=== PATIENT | male | born 1940 | race Caucasian/White ===

== ENCOUNTER 2019-04-12 06:20 | Observation (INO) ==
[2019-04-12] MEDS ORDERED: LIDOCAINE HCL 1% 20 ML VIAL ONE (06:47)
[2019-04-12] MEDS ORDERED: BUPIVACAINE 0.25% 30 ML VIAL ONE (06:48)
[2019-04-12] MEDS ORDERED: BACITRACIN INJ 50,000 UNIT VIAL ONE (06:48)
[2019-04-12] MEDS ORDERED: MIDAZOLAM HCL 5 MG/ML 1 ML VIAL ONE (07:57)
--- NOTE | 2019-04-12 07:57 | Pre Anesthesia Assessment ---
Date of Service April 12, 2019 Pre Sedation Assessment Vital Signs Temp Pulse Resp BP Pulse Ox 04/12/19 06:52 36.6 C 38 L 20 165/84 H 95 Cardiovascular + bradycardic Respiratory normal respiratory effort, lungs clear to auscultation Pre-Sedation Airway Assessment Smoking Status: Current every day smoker Hx Sleep Apnea: No Short, Thick Neck: No Thyromental Distance: > or= 3.5 Finger Breadths Oral Cavity: + WNL Mallampati Class: I ASA: ASA3 NPO Status Date of Last Intake of Fluids: 04/11/19 Time of Last Intake of Fluids: 22:00 Date of Last Intake of Solid Food: 04/11/19 Time of Last Intake of Solid Foods: 22:00 Procedure Planning Contraindications for Sedation: none Current Medications Reviewed: Yes Notes The planned sedation has been discussed with the patient. Informed Consent was obtained. I have identified the patient, determined the appropriateness of sedation and have assessed the patient immediately prior to the procedure. All medicine(s) and interventions are by my order.
--- NOTE | 2019-04-12 07:57 | History & Physical Bridge Note ---
Date of Service April 12, 2019 History & Physical Bridge Note I have examined the patient, reviewed the History & Physical and in the interval since the performance of the History & Physical I have noted the following changes of clinical significance: no changes noted
[2019-04-12] MEDS ORDERED: fentaNYL citrate 100 MCG/2 ML VIAL ONE (07:58)
[2019-04-12] MEDS ORDERED: CEFAZOLIN 250 MG/ML 1 GM VIAL ONE ×2 (07:58→08:11)
[2019-04-12] MEDS ORDERED: HydrALAZINE HCL 20 MG/ML VIAL ONE (10:05)
--- NOTE | 2019-04-12 10:21 | Post Anesthesia Assessment ---
Date of Service April 12, 2019 Post Sedation Assessment Vital Signs Temp Pulse Resp BP Pulse Ox 04/12/19 06:52 36.6 C 38 L 20 165/84 H 95 Recovery Score Activity: Moves 4 extremities Respiration: Deep Breath/Cough Circulation: +/-20% PreAnes Value Consciousness: Fully Awake Oxygen Saturation: > 92% On Room Air Discharge Sedation Level of Care: Fast Track Phase II Post Sedation Plan On clinical assessment, the patient appears to have tolerated the sedation without complications. Patient is recovering as anticipated. Patient will continue to be monitored by nursing and may be discharged when sedation discharge criteria are met per below protocol. Upon Completions of procedure up to 15 minutes continue every 5 minute vital signs and the P.A.R. score; then discharge to a Phase I or Fast Track to Phase I I per the following guidelines: * Discharge Patient to appropriate Phase II area if PAR is 8 or greater or return to pre- procedure baseline. The post - procedure orders will be as directed. * If PAR score is less than 8 or not return to pre-procedure baseline then patient will follow Phase I monitoring till PAR is reached for Phase II. The Phase I may be done in procedure room or may call to secure a Phase I area. * If naloxone or flumazenil are used for reversal, hold in Phase I for continued monitoring from when last reversal dose was given for a minimum of 60 minutes or longer pending the nurse and/or physician discretion of patient condition before discharge to Phase II. Please call the Sedation Physician to re-evaluate and complete post-note for discharge to Phase II area. Do NOT discharge from procedure sedation or Phase 1 until post- sedation evaluation note is complete by procedure /sedation MD Sedation Discharge Instructions to be given to the patient at discharge to home.
[2019-04-12] MEDS ORDERED: ACETAMINOPHEN 325 MG TAB PO PRN (10:22)
[2019-04-12] MEDS ORDERED: OXYCODONE/ACETAMINOPHEN 5mg/325mg TAB PO PRN (10:22)
--- NOTE | 2019-04-12 10:22 | Operative Report ---
Post Operative Report Pre & Post Diagnosis intermittent chb Operation Date: 04/12/19 08:00 <No data on this case meets the specified criteria> I identified the patient and participated in the time-out.: Yes Procedure Operation Date: 04/12/19 08:00 Actual Procedures p Pacer with A/V Leads (Dual) - Teri Briones DO Surgeon Teri Briones, DO Basketball Coach none Estimated Blood Loss 25 Findings Consistent with Post-Op Diagnosis Specimens none Description of Procedure see official report I attest to the content of the Intraoperative Record and any orders documented therein. Any exceptions are noted below.
[2019-04-12] MEDS ORDERED: TRIAMCINOLONE ACET 0.1% CR 15 GM TUBE TOP PRN (10:27)
[2019-04-12] MEDS: lisinopriL 5 MG TAB PO SCH (13:16)
--- NOTE | 2019-04-12 13:47 | Operative Report ---
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 PROCEDURE: Biventricular rate responsive permanent pacemaker where the LV lead is actually over the His bundle and the RV lead is a backup along with peripheral venogram, intracardiac electrogram mapping . SURGEON: Teri Briones DO. ASSISTANTS: None. ANESTHESIA: Monitored conscious sedation administered under my supervision by Maddie Will, start time 0812, end time 1011, a total of 4 mg of Versed and 100 mcg of fentanyl. INTRAVENOUS FLUIDS: 60 mL. CONTRAST: 10 mL. ANTIBIOTICS: 2 grams of Ancef. COMPLICATIONS: None. CONDITION: Stable. URINE OUTPUT: Not applicable. SPECIMENS: None. FINDINGS: See below. DRAINS: None. BLOOD LOSS: 25 mL. INDICATIONS: This is a 78-year-old gentleman with past medical history for sinus bradycardia, first-degree AV block, second degree Mobitz I block, junctional escape beats, left anterior fascicular block, incomplete right bundle branch block, hypertension, history of tobacco use, history of colon cancer where he had a chemo port on the left side and most significantly now a lot of intermittent complete heart block. Although he remained asymptomatic, there was so much that I recommended a His bundle pacemaker. CONSENT: Consent was obtained prior to the patient going into electrophysiology lab. The patient was informed of the risks, benefits and alternative procedure. Risks include but not limited to sudden cardiac , cardiac arrhythmias, cerebrovascular accident, myocardial infarction, injury to the blood vessels, chamber of the heart, lung, bleeding, and infection. The patient understood these risks and agreed to the procedure as planned. Informed consent was obtained. DESCRIPTION OF THE PROCEDURE: The patient was brought into the electrophysiology lab in a fasting state. He was connected to continuous cardiac catheterization technologist. A timeout was performed to ensure patient identity and procedure correctly. The patient was prepped and draped over the left infraclavicular space in normal surgical standard fashion. Monitored conscious sedation was given throughout the procedure for patient's comfort level. [place] precautions were maintained throughout the procedure. A 20 mL of 1% lidocaine-bupivacaine mixture was given in the left deltopectoral groove. Incision was made in the left deltopectoral groove. Blunt dissection was performed down to identify cephalic vein; however, none could be identified, so peripheral venogram was performed and axillary venous access was obtained through a needlestick without any problem. An 8-[place] sheath was inserted over the guidewire without any resistance. Of note, there was a little hint of starting to be stenosis, but I was able to get a Glidewire into the subclavian vein right under the clavicle without any problems. An 8-[place] sheath was inserted over the Glidewire without any problems. Dilator was removed and a second guidewire was inserted through the 8-[place] sheath to allow for retained venous access. Sheath was removed, flushed, reinserted over the dilator and then reinserted over the Glidewire. Then the dilator was removed and the [id number] preformed J His bundle sheath was then advanced into the right atrium. We did intracardiac electrogram mapping to find the His bundle. Then, the lead was screwed into the myocardium; however, once I screwed it in, I think it moved a little bit because the numbers were not good and the complexes were not nice, so I unscrewed that and I ended up switching out the His sheath for a new His sheath, did intracardiac mapping again and then we had an acceptable adequate threshold. The His sheath was then slit under fluoroscopic guidance. When I rechecked it bipolar after splitting the sheath, the threshold did went up a little bit. We watched that and I went ahead and used a long 7-[place] sheath over the retained guidewire, but I also placed another guidewire through to have a third guidewire and then the right atrial lead was advanced into right atrial appendage under fluoroscopic guidance and there was adequate pacing and sensing thresholds and no diaphragmatic stimulation with high output pacing. The 7-[place] sheath was peeled away and lead was fixated to pectoralis muscle using 0 silk suture. I rechecked the His lead bipolar intraoperatively and the threshold was creeping up, so I opted to put a backup RV lead in, so I used another long 7-[place] sheath and inserted that over the retained guidewire, and the guidewire and dilator removed, and the right ventricular lead was advanced into right ventricular apex under fluoroscopic guidance. There was adequate pacing and sensing thresholds and no diaphragmatic stimulation with high output pacing. A 7-[place] sheath was peeled away and lead was fixated to pectoralis muscle. I then slit the 8-[place] sheath over the His bundle and secured the His bundle lead to the pectoralis muscle. I placed a pursestring using a 2-0 Vicryl around the axillary venous access to prevent any further backbleeding. Then, a pacemaker pocket was created using blunt dissection over the pectoralis muscle. The pocket was flushed with copious amounts of bacitracin saline wash and inspected for hemostasis. Pulse generator was then attached to leads, making sure that the pins were in appropriate position, passed set screws and set screws were all tightened. Pulse generator was then placed in the pocket, making sure that the leads were lying flat beneath the device. A stay stitch using 0 silk suture was used to secure this to pectoralis muscle. The incision was then closed in 3-layer fashion using 2-0 Vicryl interrupted suture followed by 3-0 Vicryl interrupted suture, followed by a 4-0 Monocryl running stitch, followed by a Telfa and micropore dressing. EQUIPMENT: 1. Pulse generator is a [employer] Mi CRTP MRI SureScan [id number], serial number [id number]. 2. Right atrial lead Medtronic 5076-52 cm, serial number [id number]. 3. Right ventricular lead, Medtronic 5076-58 cm, serial number [id number]. 4. His bundle lead is a Medtronic 3830-69 cm, serial number [id number]. INTRAOPERATIVE TESTIN. Right atrial lead: P waves 3.8 millivolts, impedance 470 ohms, threshold 0.5 volts at 0.5 milliseconds. 2. Right ventricular lead: R waves 10.6 millivolts, impedance 757 ohms, threshold 0.6 volts at 0.5 milliseconds. 3. The His bundle lead R waves 3.5 millivolts, impedance 559 ohms, threshold 3.3 volts at 1 millisecond. FINAL MEASUREMENTS THROUGH THE DEVICE: 1. Right atrial lead: P waves 2.6 millivolts, impedance 437 ohms, threshold 0.5 volts at 0.4 milliseconds. 2. Right ventricular lead: R waves 11.4 millivolts, impedance 684 ohms, threshold 0.5 volts at 0.4 milliseconds. 3. His bundle lead impedance is 532 ohms, threshold 2 volts at 1 millisecond with a total loss of capture at 1.25 volts at 1 millisecond. FINAL PARAMETERS: DDDR 60/130, right atrial amplitude 3.5 volts, pulse width 0.4 milliseconds, sensitivity 0.3 millivolts. Right ventricular amplitude 3.5 volts, pulse width 0.4 milliseconds, sensitivity 1.2 millivolts. His bundle lead amplitude is 3 millivolts and pulse width 1 millisecond. IMPRESSION: Successful biventricular rate responsive permanent pacemaker where the LV lead is over the His bundle region and there is an RV lead for backup. PLAN: Monitor the patient overnight, 12-lead ECG, chest x-ray. He cannot lift the left elbow or left shoulder for 1 month. He cannot lift more than 10 pounds with the left arm for 2 weeks. He is to keep the dressing on and dry for 1 week's time. He will have a device and wound check next week in [facility]. I attest to the content of the Intraoperative Record and any orders documented therein. Any exception s are noted below.
--- NOTE | 2019-04-12 14:56 | Electrocardiogram Report ---
Test Reason : Blood Pressure : / mmHG Vent. Rate : 066 BPM Atrial Rate : 066 BPM P-R Int : 136 ms QRS Dur : 110 ms QT Int : 428 ms P-R-T Axes : -18 -19 177 degrees QTc Int : 448 ms Atrial-sensed ventricular-paced rhythm Abnormal ECG When compared with ECG of 22-JUL-2012 16:03, Electronic ventricular pacemaker has replaced Sinus rhythm Confirmed by Fish Renee ([id number]) on 04/12/2019 2:55:51 PM Referred By: Teri Briones Confirmed By:Fish Renee
--- NOTE | 2019-04-13 06:26 | XRay Report ---
XR chest 2V PA/lateral HISTORY: 78 years-old Male post his bundle ppm status post placement of a left subclavian pacer COMPARISON: PET CT 06/13/2009 TECHNIQUE: PA and lateral views of the chest FINDINGS: Cardiomediastinal and hilar silhouettes are within normal limits. A left subclavian pacer has been pl aced with leads overlying the expected locations of the ventricles and right atrium. Lateral view is limited secondary to upper extremity positioning. No postprocedural pneumothorax identified. A rounde d nodular 6 mm radiodensity projects over the left lung apex which may be external to the patient or reflect a calcified granuloma. Emphysema with chronic interstitial coarsening. Moderate hiatal hernia . No pleural effusion or focal airspace consolidation. Degenerative changes of the shoulders and spin e. Blunting of the posterior costophrenic angles. IMPRESSION: 1. Status post placement of a left subclavian pacer. No postprocedural pneumothorax identified. 2. Emphysema with chronic interstitial coarsening. 3. Moderate hiatal hernia. ACT 112: Negative or not required by law. The above report was generated using voice recognition software. It may contain grammatical, syntax o r spelling errors. Electronically signed by: Fabrizio Bravo M.D. 04/13/2019 6:24 AM
[2019-04-13] MEDS ORDERED: ATORVASTATIN 10 MG TAB PO SCH (09:00)
[2019-04-13] MEDS: lisinopriL 5 MG TAB PO SCH (09:00)
[2019-04-13] MEDS ORDERED: MULTIVITAMIN TAB PO SCH (09:00)
--- NOTE | 2019-04-26 08:17 | Discharge Summary ---
Date of Service April 20, 2019 Admission HPI Per Admitting Provider Pt admitted for elective ppm Admission Exam Per Admitting Provider aaox3, NAD NC/AT, EOMI Supple No JVD Nrl S1/S2, No murmur CTA b/l no w/r/r soft nt/nd no LE edema b/l skin intact no focal deficits Principal Diagnosis intermittent CHB s/p dual chamber ppm Discharge Exam aaox3, NAD NC/AT, EOMI Supple No JVD Nrl S1/S2, No murmur CTA b/l no w/r/r soft nt/nd no LE edema b/l skin intact no focal deficits left pectoral incision intact, no hematoma mild ecchymosis Discharge Data Allergies Allergy/AdvReac Type Severity Reaction Status Date / Time No Known Allergies Allergy Unknown Verified 06/15/13 08:02 Procedures Performed Operation Date: 04/12/19 08:00 Actual Procedures p Pacer with A/V Leads (Dual) - DO dae Chacko Insertion Single Lead Only - DO dae Chacko Bundle of his Recording - Teri Briones DO s Venogram, Unilateral - Teri Briones DO Ordered Studies 04/12/19 07:00 EP Lab Images for PACS ONCE Hospital Course (1) Intermittent complete heart block: Total Time Total Time Spent Total Time Spent (In Minutes): 35 Total Time Includes: Examination of the Patient, Discharge Planning, Medication Reconciliation and Other Discharge Plan Discharge Items Patient Disposition: Home - Self-Care Reason For Visit: Intermittent CHB,PACE MAKER INSERTION Discharge Diagnosis: intermittent chb s/p his bundle ppm Condition on Discharge: Good Activity: As commented below Activity Comment: do not raise the left elbow over the left shoulder for 1 month Lifting: No more than 10 pounds Lifting Comment: do not lift more than 10 pounds with the left arm for 2 weeks Bathing: Keep incision dry Bathing Comment: keep dressing on & dry until thursday04/19/2019; then let water run over it Sexual Activity: After two weeks Non-emergency contact: Board Attendant Call non-emergency contact if: you have any medication questions Follow-up/Referrals: Benita Lopez MD [Primary Care Provider] - Diet: Heart Healthy Addtl Attending Provider Instructions: Keep dressing dry and on until Thursday04/19/19 then let water run over the incision do not scrub it Any swelling or concerns at the incision area call Dr. Briones's office immediately Device & Wound check Thursday04/22/19 at [facility] as scheduled Pending Studies at Discharge: No Stand-Alone Forms: My [facility] Medications and DC Order Prescriptions: Continued multivitamin Tablet 1 tab PO DAILY RF: 0 atorvastatin [Lipitor] 10 mg Tablet 10 mg PO DAILY RF: 0 triamcinolone acetonide 0.1 % Cream 1 applic TOPICAL DAILY PRN (Reason: Itching) RF: 0 lisinopril 5 mg Tablet 5 mg PO DAILY RF: 0 Discharge Orders: Discharge Order (Routine); Ordered 04/13/19 Ordered By: Teri Briones Admission Data Admit Date/Time: 04/12/19 09:00 Attending Provider: Teri Briones Admit Provider: Teri Briones Primary Care Provider: Benita Lopez Other Interventions: Discharge Summary Assessment (RN) Last Done: 04/13/19 09:06 DC Date/Time DO NOT enter until pt leaves facility: 04/13/19 09:34
== END 2019-04-13 09:34 | disposition home or self-care (01) ==
LOC: 2S 06:20 → EP 06:20

== ENCOUNTER 2021-01-06 08:26 | Inpatient (IN) ==
[2021-01-06] MEDS ORDERED: KETOROLAC TROMETHAMINE 15 MG/ML VIAL IV STA (08:45)
[2021-01-06] MEDS ORDERED: ONDANSETRON INJ 2 MG/ML 2 ML VIAL IV STA (08:45)
[2021-01-06] MEDS ORDERED: MoRPHine SULFATE 4 MG/ML 1 ML CARP\\VIAL IV PRN (08:45)
[2021-01-06] MEDS ORDERED: SODIUM CHLORIDE 0.9% 500 ML IV STA (08:45)
--- NOTE | 2021-01-06 08:49 | Emergency Department Note ---
Impression & Plan Diffuse abdominal pain, Diverticulitis, Colonic diverticular abscess, Leukocytosis ED Provider Note NAME: HERLINDA LOPEZ AGE: 80 SEX: M : 1940 ARRIVES VIA: Walk-In INFORMANT: [Patient] ED PROVIDER(S): [Masood Mckeon MD] CHIEF COMPLAINT: Abdominal pain HISTORY OF PRESENT ILLNESS: The patient is a 80-year-old male presents to the ER with around 2 days of diffuse abdominal discomfort rated as a 9/10. The pain worsens with movements and certain ways he sits. The pain started after eating dinner on Thursday, he had felt fine before. There has been no nausea, no fever, no urinary complaints. No cough, cold or congestion. The patient did try Dulcolax which caused a liquid bowel movement, he did not feel any better after the Dulcolax. He has noticed some chills, he states he just cannot stop shaking. The patient did have an abdominal surgery for colonic cancer resection. He thinks he still has his appendix and gallbladder. REVIEW OF SYSTEMS: See HPI for pertinent positives and negatives. A total of ten systems were revie wed and were otherwise negative. PMHx/PSHx: See Below SOCIAL HISTORY: See Below. PHYSICAL EXAM: GENERAL: Patient is in mild distress from pain. HEENT: No acute trauma, normocephalic atraumatic, mucous membranes moist, no nasal congestion, no scleral icterus. NECK: No stridor, no adenopathy, no meningismus, trachea is midline. LUNGS: Clear to auscultation bilaterally, no wheeze, no rhonchi, breath sounds equal. HEART: Without murmurs gallops or rubs, regular rate and rhythm. ABDOMEN: Soft, diffusely moderately tender and somewhat firm, bowel sounds positive and hyperactive, no hernias. EXTREMITIES: No cyanosis or edema, full range of motion of all the joints without pain or difficulty, no signs for acute trauma. NEUROLOGIC: Oriented x 3, no acute motor or sensory deficits, no focal weakness. SKIN: No rash, no jaundice, no diaphoresis. Groin: No scrotal erythema, no obvious hernia. DIFFERENTIAL DIAGNOSIS: Appendicitis, testicular torsion, diverticulitis, UTI, obstruction, foodborne or viral illness, mesenteric ischemia, aortic pathology, inflammatory bowel disease, renal colic, PUD, pancreatitis, biliary pathology, hernia, volvulus, constipation, as well as other pathologies. EMERGENCY DEPARTMENT COURSE/PROCEDURES: ECG: Indication was abdominal pain. The ECG shows a ventricular pacemaker with a rate of 85. There is no concerning ST elevation, no PVCs. The QTc is 466. Continuous Cardiac Monitoring: An order was placed for continuous cardiac monitoring. The monitor shows a rate of 84 with a ventricular pacemaker. Critical Care Note: I have personally spent 55 minutes of critical care time in the direct management of this patient. This includes bedside care, interpretation of diagnostic studies, and testing, discussion with consultants, patient, and family members, and other required patient management activities. This 55 minutes is in excess of all separately billable procedures. MEDICAL DECISION MAKING: There is a significant leukocytosis at 20,000, this is consistent with infection. There is a normal hemoglobin and platelet count. There was some renal insufficiency/dehydration with a creatinine of 1.5. Lactic acid level was elevated consistent with dehydration and/or infection. Bilirubin was somewhat elevated but the remaining liver enzymes were unremarkable. No evidence for pancreatitis. ECG shows a ventricular pacemaker, no acute ischemia. Cardiac enzyme testing x1 is not consistent with acute cardiac injury. Chest film does not show pneumonia or free air. Abdominal and pelvis CT shows diverticulitis with a small left pelvic abscess. Urinalysis does not show evidence for infection. Covid testing returned negative. The patient was aggressively managed given his presentation. He received IV saline, 1 L. He received IV Zosyn, IV Zofran, IV morphine, IV Toradol. He was eventually given IV Cipro and IV Flagyl. The patient has diverticulitis with a diverticular abscess. I did speak with our general surgery team. The patient was seen here in the ED and transfer to a tertiary center was recommended for IR abscess drainage. I spoke with the general surgeon and the IR attending at [facility] in [place]. The patient's images were uploaded to [employer] and the physicians at [facility] were able to review the study. The patient is not a candidate at this time for IR intervention. They recommended IV antibiotics only. They recommended Cipro and Flagyl. I spoke with the patient about the circumstances. I spoke with the vocational case manager. I spoke with the on-call hospitalist. Admission is warranted. Transfer is not necessary at this point as per the tertiary center. Past Med/Surg History Medical History Pacemaker Surgical History H/O knee surgery History of colon surgery History of prostate surgery Family History Father Prostate cancer Social History Smoking Status: Current every day smoker Cigarettes Per Day: 10; Hx Alcohol Use: Yes Hx Substance Use: No Preferred Language: Divehi Communication Ability: Effective Mink Farmer Required: No Beliefs That Will Affect Care: None marital status: / Current Living Situation: Alone Other Information That Helps Us Care for You: No Feels Safe at Home: Yes Safety Concerns: Feels Safe At This Time Assistive Devices: None Allergies Allergies Allergy/AdvReac Type Severity Reaction Status Date / Time No Known Allergies Allergy Unknown Verified 01/06/21 09:28 Home Meds Home Medications Medication Instructions Recorded Confirmed atorvastatin 10 mg tablet (Lipitor) 10 mg PO QAM 04/12/19 01/06/21 lisinopril 5 mg tablet (Zestril) 5 mg PO QAM 04/12/19 01/06/21 multivitamin (Daily Multi-Vitamin) 1 tab PO QAM 04/12/19 01/06/21 metoprolol succinate 25 mg 25 mg PO QAM 01/06/21 01/06/21 tablet,extended release 24 hr (Toprol XL) tadalafil 5 mg tablet (Cialis) 5 mg PO DAILY PRN 01/06/21 01/06/21 Results & Data (ED) Vital Signs Vital Signs - 24 hr 01/06/21 08:31 01/06/21 08:50 01/06/21 08:56 Temperature 36.5 C Temperature Source Oral Pulse Rate 85 84 Pulse Rate [Right Finger] 86 Pulse Rate from SpO2 Sensor 86 Respiratory Rate 20 22 20 Respiratory Effort / Characteristics Non-Labored Respiratory Depth Normal Blood Pressure 142/79 H Blood Pressure [Right Arm] 131/77 Blood Pressure Mean 100 Blood Pressure Mean [Right Arm] 95 Pulse Oximetry 95 99 Oxygen Delivery Method Room Air Room Air Sepsis Recent Fever Within 48 Hours No Sepsis New/Unexplained Change in Mental Status N/A Sepsis Action Taken by Nursing No Action Required 01/06/21 09:00 01/06/21 09:10 01/06/21 09:20 Temperature Temperature Source Pulse Rate 83 81 78 Pulse Rate [Right Finger] Pulse Rate from SpO2 Sensor 78 83 78 Respiratory Rate 17 17 20 Respiratory Effort / Characteristics Respiratory Depth Blood Pressure Blood Pressure [Right Arm] Blood Pressure Mean Blood Pressure Mean [Right Arm] Pulse Oximetry 95 96 98 Oxygen Delivery Method Sepsis Recent Fever Within 48 Hours Sepsis New/Unexplained Change in Mental Status Sepsis Action Taken by Nursing 01/06/21 09:24 01/06/21 09:30 01/06/21 09:40 Temperature Temperature Source Pulse Rate 75 74 Pulse Rate [Right Finger] 77 Pulse Rate from SpO2 Sensor 75 71 Respiratory Rate 16 20 25 H Respiratory Effort / Characteristics Respiratory Depth Blood Pressure Blood Pressure [Right Arm] 140/71 Blood Pressure Mean Blood Pressure Mean [Right Arm] 94 Pulse Oximetry 97 88 L 90 Oxygen Delivery Method Sepsis Recent Fever Within 48 Hours Sepsis New/Unexplained Change in Mental Status Sepsis Action Taken by Nursing 01/06/21 09:50 01/06/21 09:52 01/06/21 10:16 Temperature Temperature Source Pulse Rate 75 68 Pulse Rate [Right Finger] 69 Pulse Rate from SpO2 Sensor 74 68 Respiratory Rate 24 16 17 Respiratory Effort / Characteristics Respiratory Depth Blood Pressure Blood Pressure [Right Arm] 140/71 Blood Pressure Mean Blood Pressure Mean [Right Arm] 94 Pulse Oximetry 90 94 96 Oxygen Delivery Method Room Air Sepsis Recent Fever Within 48 Hours Sepsis New/Unexplained Change in Mental Status Sepsis Action Taken by Nursing 01/06/21 10:21 01/06/21 10:30 01/06/21 10:40 Temperature Temperature Source Pulse Rate 66 66 66 Pulse Rate [Right Finger] Pulse Rate from SpO2 Sensor 67 66 66 Respiratory Rate 17 25 H 26 H Respiratory Effort / Characteristics Respiratory Depth Blood Pressure Blood Pressure [Right Arm] Blood Pressure Mean Blood Pressure Mean [Right Arm] Pulse Oximetry 95 94 96 Oxygen Delivery Method Sepsis Recent Fever Within 48 Hours Sepsis New/Unexplained Change in Mental Status Sepsis Action Taken by Nursing 01/06/21 10:50 01/06/21 10:59 01/06/21 11:00 Temperature Temperature Source Pulse Rate 63 70 Pulse Rate [Right Finger] 71 Pulse Rate from SpO2 Sensor 61 70 Respiratory Rate 24 16 24 Respiratory Effort / Characteristics Respiratory Depth Blood Pressure Blood Pressure [Right Arm] 122/68 Blood Pressure Mean Blood Pressure Mean [Right Arm] 86 Pulse Oximetry 95 95 96 Oxygen Delivery Method Room Air Sepsis Recent Fever Within 48 Hours Sepsis New/Unexplained Change in Mental Status Sepsis Action Taken by Nursing 01/06/21 11:10 01/06/21 11:20 01/06/21 11:30 Temperature Temperature Source Pulse Rate 69 70 69 Pulse Rate [Right Finger] Pulse Rate from SpO2 Sensor 69 70 75 Respiratory Rate 17 20 23 Respiratory Effort / Characteristics Respiratory Depth Blood Pressure Blood Pressure [Right Arm] Blood Pressure Mean Blood Pressure Mean [Right Arm] Pulse Oximetry 95 93 76 L Oxygen Delivery Method Sepsis Recent Fever Within 48 Hours Sepsis New/Unexplained Change in Mental Status Sepsis Action Taken by Nursing 01/06/21 11:40 01/06/21 11:50 01/06/21 12:00 Temperature Temperature Source Pulse Rate 69 69 72 Pulse Rate [Right Finger] Pulse Rate from SpO2 Sensor 69 69 71 Respiratory Rate 21 22 26 H Respiratory Effort / Characteristics Respiratory Depth Blood Pressure Blood Pressure [Right Arm] Blood Pressure Mean Blood Pressure Mean [Right Arm] Pulse Oximetry 95 95 92 Oxygen Delivery Method Sepsis Recent Fever Within 48 Hours Sepsis New/Unexplained Change in Mental Status Sepsis Action Taken by Nursing 01/06/21 12:10 01/06/21 12:20 01/06/21 12:30 Temperature Temperature Source Pulse Rate 71 73 70 Pulse Rate [Right Finger] 71 Pulse Rate from SpO2 Sensor 71 73 71 Respiratory Rate 28 H 25 H 31 H Respiratory Effort / Characteristics Respiratory Depth Blood Pressure Blood Pressure [Right Arm] 138/74 Blood Pressure Mean Blood Pressure Mean [Right Arm] 95 Pulse Oximetry 93 92 92 Oxygen Delivery Method Room Air Sepsis Recent Fever Within 48 Hours Sepsis New/Unexplained Change in Mental Status Sepsis Action Taken by Nursing 01/06/21 12:40 Temperature Temperature Source Pulse Rate 72 Pulse Rate [Right Finger] Pulse Rate from SpO2 Sensor 71 Respiratory Rate 29 H Respiratory Effort / Characteristics Respiratory Depth Blood Pressure Blood Pressure [Right Arm] Blood Pressure Mean Blood Pressure Mean [Right Arm] Pulse Oximetry 92 Oxygen Delivery Method Sepsis Recent Fever Within 48 Hours Sepsis New/Unexplained Change in Mental Status Sepsis Action Taken by Retirement Medications Current Medication List: was personally reviewed by me Laboratory Data Attestation: I reviewed the patient's lab results. Result diagrams: 01/06/21 Unknown 01/06/21 Unknown Lab Results 01/06/21 01/06/21 01/06/21 Range/Units 08:45 09:11 11:07 Lactate 2.8 H* (0.4-2.0) mmol/L Urine Color Selam Urine Appearance Clear (Clear) Urine pH 5.5 (4.5-7.5) Ur Specific [place] >= 1.030 (1.000-1.030) Urine Protein 3+ H (Negative) Urine Glucose (UA) Negative (Negative) Urine Ketones 1+ H (Negative) Urine Blood 2+ H (Negative) Urine Nitrite Positive A (Negative) Urine Bilirubin 2+ H (Negative) Urine Urobilinogen Negative (Negative) Ur Leukocyte Esterase Negative (Negative) Urine RBC 0-4 (0-4) /hpf Urine WBC 0-5 (0-5) /hpf Ur Epithelial Cells 0-5 (0-5) /lpf Urine Bacteria 1+ H (Negative) COVID-19 Eval Order Covid19 at [facility] SARS-CoV-2 (PCR) (Negative) 01/06/21 Range/Units 11:07 Lactate (0.4-2.0) mmol/L Urine Color Urine Appearance (Clear) Urine pH (4.5-7.5) Ur Specific [place] (1.000-1.030) Urine Protein (Negative) Urine Glucose (UA) (Negative) Urine Ketones (Negative) Urine Blood (Negative) Urine Nitrite (Negative) Urine Bilirubin (Negative) Urine Urobilinogen (Negative) Ur Leukocyte Esterase (Negative) Urine RBC (0-4) /hpf Urine WBC (0-5) /hpf Ur Epithelial Cells (0-5) /lpf Urine Bacteria (Negative) COVID-19 Eval Order SARS-CoV-2 (PCR) NEGATIVE (Negative) Administered Medications Discontinued Medications Sodium Chloride (Nss) 500 mls @ 999 mls/hr IV .Q31M STA Stop: 01/06/21 09:15 Last Infusion: 01/06/21 09:53 Dose: 0 mls/hr Documented by: [id number] Admin: 01/06/21 09:15 Dose: 999 mls/hr Documented by: [id number] Sodium Chloride (Nss 1000ml) 500 mls @ 999 mls/hr IV .Q31M ONE Stop: 01/06/21 10:15 Last Infusion: 01/06/21 11:25 Dose: 0 mls/hr Documented by: [id number] Admin: 01/06/21 09:53 Dose: 999 mls/hr Documented by: [id number] Piperacillin Sod/Tazobactam Sod (Zosyn) 4.5 gm in 120 mls @ 240 mls/hr IV NOW ONE Stop: 01/06/21 10:23 Last Infusion: 01/06/21 11:25 Dose: 0 mls/hr Documented by: [id number] Admin: 01/06/21 10:19 Dose: 240 mls/hr Documented by: [id number] Ciprofloxacin (Cipro / D5w) 400 mg in 200 mls @ 200 mls/hr IV NOW STA Stop: 01/06/21 13:13 Last Infusion: 01/06/21 14:10 Dose: 0 mls/hr Documented by: [id number] Admin: 01/06/21 12:37 Dose: 200 mls/hr Documented by: [id number] Metronidazole (Flagyl) 500 mg in 100 mls @ 100 mls/hr IV NOW STA Stop: 01/06/21 13:13 Last Infusion: 01/06/21 15:15 Dose: 0 mls/hr Documented by: [id number] Admin: 01/06/21 14:10 Dose: 100 mls/hr Documented by: [id number] Sodium Chloride (Nss 1000ml) 1,000 mls @ 999 mls/hr IV .Q1H1M ONE Stop: 01/06/21 13:47 Last Infusion: 01/06/21 15:15 Dose: 0 mls/hr Documented by: [id number] Admin: 01/06/21 14:10 Dose: 999 mls/hr Documented by: [id number] Ioversol (Optiray 320 100ml) 94 ml IV ONCE ONE Stop: 01/06/21 10:10 Last Admin: 01/06/21 10:10 Dose: 94 ml Documented by: [id number] Ketorolac Tromethamine (Ketorolac Tromethamine 15 Mg/Ml Vial) 10 mg IV NOW STA Stop: 01/06/21 08:46 Last Admin: 01/06/21 09:14 Dose: 10 mg Documented by: [id number] Miscellaneous Information (Consult Pharmacy) 1 ea N/A NOW STA Stop: 01/06/21 12:53 Last Admin: 01/06/21 14:10 Dose: 1 ea Documented by: [id number] Morphine Sulfate (Morphine Sulfate 4 Mg/Ml 1 Ml Carp\Vial) 2 mg IV Q15M PRN PRN Reason: Pain Stop: 01/20/21 08:44 Last Admin: 01/06/21 09:14 Dose: 2 mg Documented by: [id number] Ondansetron HCl (Ondansetron Inj 2 Mg/Ml 2 Ml Vial) 4 mg IV NOW STA Stop: 01/06/21 08:46 Last Admin: 01/06/21 09:14 Dose: 4 mg Documented by: [id number] Imaging Data Radiologist's Impression: Abdomen/Pelvis CT 01/06/21 08:45 CT SCAN OF THE ABDOMEN AND PELVIS WITH IV CONTRAST CLINICAL HISTORY: Generalized abdominal pain. Chills. COMPARISON STUDY: Abdominal CT dated 11/03/2008. TECHNIQUE: Following the IV administration of 94 cc of Optiray 320, CT scan of the abdomen and pelvis is performed from the lung bases to the proximal femora. Images are reviewed in the axial, sagittal, and coronal planes. IV contrast was administered without complication. A dose lowering technique was utilized adhering to the principles of ALARA. CT DOSE: 312.87 mGy.cm FINDINGS: Lung bases: The heart is enlarged and and without pericardial effusion. Pacemaker leads are noted. Advanced emphysematous change is noted. A fat- containing Bochdalek hernia is seen at the right lung base. There are scattered calcified granulomas and dependent atelectasis. No airspace consolidation typical for pneumonia or pleural effusion is identified. There is a large hiatal hernia. Liver: The contrast-enhanced liver is normal in size, contour, and attenuation. There is no intrahepatic biliary ductal dilatation. The hepatic veins and portal veins are patent. Gallbladder: Unremarkable. Spleen: Normal in size and attenuation. There are scattered calcified splenic granulomas. The Pancreas: Unremarkable. Adrenal glands: Unremarkable. Kidneys: The contrast enhanced kidneys demonstrate cortical atrophy and are without hydronephrosis. The kidneys enhance symmetrically. A 10 mm cyst is noted in the left kidney. Additional subcentimeter cortical hypodensities also likely represent cysts but are too small for definitive characterization. Foci of cortical scarring are noted in both kidneys. Abdominal vasculature: There is moderate atherosclerotic calcification and mild ectasia of the abdominal aorta. Bowel: There is postoperative change from right colon resection with ileocolic anastomosis. The proximal small bowel loops are mildly distended and fluid- filled measuring up to 2.5 cm. No transition point is identified and there is no evidence of high-grade obstruction. Liquid stool seen throughout the colon. Focal dilatation of the right colon is nonspecific and may be related to denervation. There is moderate colonic diverticulosis. There is wall thickening with pericolonic inflammation involving the sigmoid colon typical for acute diverticulitis. There is a developing abscess adjacent the sigmoid colon in the deep pelvis to left of midline seen on image #[id number]. This measures 2.0 x 4.2 x 1.8 cm. There are hyperemic appearing loops of small bowel in the right lower q uadrant with mild surrounding infiltration. This is best seen on image #229. There is trace interloop fluid There is no pneumatosis intestinalis or portal venous gas. Peritoneum: There is no intraperitoneal free air. Trace free fluid is noted in the pelvis. There is a fat-containing umbilical hernia. Lymphadenopathy: Prominent retroperitoneal lymph nodes measure up to 9 mm in short axis. Pelvic viscera: The prostate gland is surgically absent. The bladder is decompressed, and the wall appears thickened and trabeculated. There is a fat- containing left inguinal hernia. Surgical clips are noted in the groin bilaterally. Skeletal structures: The skeletal structures are osteopenic. There is mild to moderate lumbosacral spondylosis, and bilateral pars defects are seen at L5 with 8 mm of anterolisthesis at L5-S1. No lytic or blastic lesions are seen. IMPRESSION: 1. There is moderate colonic diverticulosis with evidence of acute diverticulitis involving the sigmoid colon. 2. No intraperitoneal free air is identified. 3. There is a 2.0 x 4.2 x 1.8 cm developing abscess in the deep left pelvis adjacent to the sigmoid colon. 4. There is postoperative change from right-sided colonic resection with ileocolic anastomosis. No high-grade bowel obstruction is identified. 5. There is focal dilatation of the right colon at the anastomotic site which may be related to denervation. Liquid stool is seen throughout the colon. Additionally, there are mildly distended and fluid-filled loops of small bowel with no clear transition point identified. Mild inflammatory change is suggested involving several loops of small bowel in the right lower quadrant with trace associated interloop fluid. These findings could represent a nonspecific enterocolitis. Ileus or low-grade obstruction could also have this appearance. Clinical correlation will be required. 6. Cardiomegaly and emphysema. 7. Status post prostatectomy. 8. Large hiatal hernia. 9. Additional findings as above. ACT 112: Negative or not required by law. Electronically signed by: Masood Douglas M.D. 01/06/2021 10:34 AM Chest X-Ray 01/06/21 08:45 SINGLE VIEW CHEST CLINICAL HISTORY: Generalized abdominal pain. FINDINGS: An AP, portable, upright chest radiograph is compared to study dated 04/13/2019. There is a large hiatal hernia. A 2-lead cardiac pacemaker is unchanged in position. The heart is enlarged noting atherosclerotic ariella cification of the thoracic aorta. The pulmonary vasculature is noncongested. Chronic interstitial thickening is similar to previous. Atelectasis is noted at the lung bases. The lungs and pleural spaces are otherwise clear. No pneumothorax is seen. The skeletal structures are osteopenic. The bony thorax is grossly intact. IMPRESSION: 1. Cardiomegaly and cardiac pacemaker with no radiographic evidence of congestive failure. 2. There is no airspace consolidation or large pleural effusion. 3. Hiatal hernia. ACT 112: Negative or not required by law. Electronically signed by: Masood Douglas M.D. 01/06/2021 9:32 AM Discharge Plan Visit Data Chief Complaint: Abdominal Pain Stated Complaint: AB PAIN ED Provider: Masood Mckeon Discharge Problem: Diffuse abdominal pain, Diverticulitis, Colonic diverticular abscess, Leukocytosis Patient Disposition: Admitted As Inpatient Condition: Fair
[2021-01-06 09:06] LABS: Appearance Urine Clear (Clear); Bilirubin Urine 2+ (Negative); Blood Urine 2+ (Negative); Color Urine Amber; Glucose Urine UA Negative (Negative); Ketones Urine 1+ (Negative); Leukocyte Esterase Urine Negative (Negative); Nitrite Urine Positive (Negative); Protein Urine 3+ (Negative); Specific Gravity Urine >= 1.030 (1.000-1.030); Urobilinogen Urine Negative (Negative); pH Urine 5.5 (4.5-7.5)
[2021-01-06 09:33] LABS: Basophils # (auto) 0.01 K/uL (0-0.2); Eosinophils # (auto) 0.01 K/uL (0-0.5); Hematocrit (blood only) 43.2 % (42-52); Hemoglobin 14.5 g/dL (14.0-18.0); Immature Granulocytes # (auto) 0.04 K/uL (0.00-0.02); Immature Granulocytes % (auto) 0.2 %; Lymphocytes # (auto) 0.94 K/uL (1.2-3.4); Lymphocytes % (auto) 4.6 %; Mean Corpuscular Hemoglobin 32.5 pg (25-34); Mean Corpuscular Hgb Conc 33.6 g/dL (32-36); Mean Corpuscular Volume 96.9 fL (80-100); Mean Platelet Volume 11.2 fL (7.4-10.4); Monocytes # (auto) 0.42 K/uL (0.11-0.59); Neutrophils # (auto) 19.09 K/uL (1.4-6.5); Neutrophils % (auto) 93.2 %; Platelet Count 277 K/uL (130-400); RDW Coefficient of Variation 13.8 % (11.5-14.5); RDW Standard Deviation 49.1 fL (36.4-46.3); Red Blood Count 4.46 M/uL (4.7-6.1); White Blood Count 20.51 K/uL (4.8-10.8)
--- NOTE | 2021-01-06 09:33 | XRay Report ---
SINGLE VIEW CHEST CLINICAL HISTORY: Generalized abdominal pain. FINDINGS: An AP, portable, upright chest radiograph is compared to study dated 04/13/2019. There is a large hiatal hernia. A 2-lead cardiac pacemaker is unchanged in position. The heart is enlarged notin g atherosclerotic calcification of the thoracic aorta. The pulmonary vasculature is noncongested. Chr onic interstitial thickening is similar to previous. Atelectasis is noted at the lung bases. The lung s and pleural spaces are otherwise clear. No pneumothorax is seen. The skeletal structures are osteop enic. The bony thorax is grossly intact. IMPRESSION: 1. Cardiomegaly and cardiac pacemaker with no radiographic evidence of congestive failure. 2. There is no airspace consolidation or large pleural effusion. 3. Hiatal hernia. ACT 112: Negative or not required by law. Electronically signed by: Masood oDuglas M.D. 01/06/2021 9:32 AM
[2021-01-06] MEDS ORDERED: SODIUM CHLORIDE 0.9% 1000ML 500 ML IV ONE (09:45)
[2021-01-06 09:47] LABS: Epithelial Cell Urine 0-5 /lpf (0-5); RBC Urine 0-4 /hpf (0-4)
[2021-01-06 09:48] LABS: WBC Urine 0-5 /hpf (0-5)
[2021-01-06 09:49] LABS: Bacteria Urine 1+ (Negative)
[2021-01-06 09:52] LABS: Alanine Aminotransferase 17 U/L (12-78); Albumin Level 3.6 gm/dl (3.4-5.0); Aspartate Aminotransferase 16 U/L (15-37); BUN Creatinine Ratio 19.9 (10-20); Blood Urea Nitrogen 30 mg/dl (7-18); Calcium 9.2 mg/dl (8.5-10.1); Carbon Dioxide 27 mmol/L (21-32); Chloride 104 mmol/L (98-107); Creatinine Clr Calc Pharmacy 39.5 ml/min; Est GFR (African American) 50.6 ml/min; Est GFR (Non-African American) 43.7 ml/min; Glucose 177 mg/dl (70-99); Lipase 92 U/L (73-393); Potassium 4.6 mmol/L (3.5-5.1); Sodium 138 mmol/L (136-145)
[2021-01-06] MEDS ORDERED: PIPERACILL/TAZOBAC CONSULT ACTIVE PRN (09:54)
[2021-01-06] MEDS ORDERED: PIPERACILLIN/TAZOBACTAM 4.5 GM/120 ML BAG IV ONE (09:54)
[2021-01-06 09:57] LABS: Albumin Globulin Ratio 0.8 (0.9-2); Alkaline Phosphatase 80 U/L (45-117); Bilirubin,Total 2.2 mg/dl (0.2-1); Globulin 4.3 gm/dl (2.5-4.0); Total Protein 7.9 gm/dl (6.4-8.2); Troponin I < 0.015 ng/ml (0-0.045)
[2021-01-06] MEDS ORDERED: OPTIRAY 320 100ml IV ONE (10:09)
--- NOTE | 2021-01-06 10:35 | CT Scan Report ---
CT SCAN OF THE ABDOMEN AND PELVIS WITH IV CONTRAST CLINICAL HISTORY: Generalized abdominal pain. Chills. COMPARISON STUDY: Abdominal CT dated 11/03/2008. TECHNIQUE: Following the IV administration of 94 cc of Optiray 320, CT scan of the abdomen and pelvi s is performed from the lung bases to the proximal femora. Images are reviewed in the axial, sagittal , and coronal planes. IV contrast was administered without complication. A dose lowering technique wa s utilized adhering to the principles of ALARA. CT DOSE: 312.87 mGy.cm FINDINGS: Lung bases: The heart is enlarged and and without pericardial effusion. Pacemaker leads are noted. Ad vanced emphysematous change is noted. A fat-containing Bochdalek hernia is seen at the right lung bas e. There are scattered calcified granulomas and dependent atelectasis. No airspace consolidation typi ariella for pneumonia or pleural effusion is identified. There is a large hiatal hernia. Liver: The contrast-enhanced liver is normal in size, contour, and attenuation. There is no intrahepa tic biliary ductal dilatation. The hepatic veins and portal veins are patent. Gallbladder: Unremarkable. Spleen: Normal in size and attenuation. There are scattered calcified splenic granulomas. The Pancreas: Unremarkable. Adrenal glands: Unremarkable. Kidneys: The contrast enhanced kidneys demonstrate cortical atrophy and are without hydronephrosis. T he kidneys enhance symmetrically. A 10 mm cyst is noted in the left kidney. Additional subcentimeter cortical hypodensities also likely represent cysts but are too small for definitive characterization. Foci of cortical scarring are noted in both kidneys. Abdominal vasculature: There is moderate atherosclerotic calcification and mild ectasia of the abdomi nal aorta. Bowel: There is postoperative change from right colon resection with ileocolic anastomosis. The proxi mal small bowel loops are mildly distended and fluid-filled measuring up to 2.5 cm. No transition poi nt is identified and there is no evidence of high-grade obstruction. Liquid stool seen throughout the colon. Focal dilatation of the right colon is nonspecific and may be related to denervation. There i s moderate colonic diverticulosis. There is wall thickening with pericolonic inflammation involving t he sigmoid colon typical for acute diverticulitis. There is a developing abscess adjacent the sigmoid colon in the deep pelvis to left of midline seen on image #328. This measures 2.0 x 4.2 x 1.8 cm. Th ere are hyperemic appearing loops of small bowel in the right lower quadrant with mild surrounding in filtration. This is best seen on image #229. There is trace interloop fluid There is no pneumatosis i ntestinalis or portal venous gas. Peritoneum: There is no intraperitoneal free air. Trace free fluid is noted in the pelvis. There is a fat-containing umbilical hernia. Lymphadenopathy: Prominent retroperitoneal lymph nodes measure up to 9 mm in short axis. Pelvic viscera: The prostate gland is surgically absent. The bladder is decompressed, and the wall ap pears thickened and trabeculated. There is a fat-containing left inguinal hernia. Surgical clips are noted in the groin bilaterally. Skeletal structures: The skeletal structures are osteopenic. There is mild to moderate lumbosacral sp ondylosis, and bilateral pars defects are seen at L5 with 8 mm of anterolisthesis at L5-S1. No lytic or blastic lesions are seen. IMPRESSION: 1. There is moderate colonic diverticulosis with evidence of acute diverticulitis involving the sigmo id colon. 2. No intraperitoneal free air is identified. 3. There is a 2.0 x 4.2 x 1.8 cm developing abscess in the deep left pelvis adjacent to the sigmoid c olon. 4. There is postoperative change from right-sided colonic resection with ileocolic anastomosis. No hi gh-grade bowel obstruction is identified. 5. There is focal dilatation of the right colon at the anastomotic site which may be related to dener vation. Liquid stool is seen throughout the colon. Additionally, there are mildly distended and fluid -filled loops of small bowel with no clear transition point identified. Mild inflammatory change is s uggested involving several loops of small bowel in the right lower quadrant with trace associated int erloop fluid. These findings could represent a nonspecific enterocolitis. Ileus or low-grade obstruct ion could also have this appearance. Clinical correlation will be required. 6. Cardiomegaly and emphysema. 7. Status post prostatectomy. 8. Large hiatal hernia. 9. Additional findings as above. ACT 112: Negative or not required by law. Electronically signed by: Masood Douglas M.D. 01/06/2021 10:34 AM
--- NOTE | 2021-01-06 11:09 | Surgery Consultation ---
Date of Consultation January 06, 2021 Assessment & Plan (1) Acute diverticulitis: pt is a 80 year-old male who presents to ER with 2 days history abdominal pain, WBC 20,000, CT scan- finding- acute diverticulitis with 4.2cm abscess, IMP: acute diverticulitis with abscess, base on pt's age high WBC, 4.2cm abscess, recommend to transfer higher level care for percutaneous drainage by IR, D/W benefits, risks and alternatives of the transfer, pt and his family member understood, they agree with transfer, I answered all questions, D/W ER attending, History of Present Illness Reason for Consultation: acute diverticulitis with abscess Requesting Physician: Masood Mcfarland History of Present Illness CHIEF COMPLAINT: Abdominal pain HISTORY OF PRESENT ILLNESS: The patient is a 80-year-old male presents to the ER with around 2 days of diffuse abdominal discomfort rated as a 9/10. The pain worsens with movements and certain ways he sits. The pain started after eating dinner on Thursday, he had felt fine before. There has been no nausea, no fever, no urinary complaints. No cough, cold or congestion. The patient did try Dulcolax which caused a liquid bowel movement, he did not feel any better after the Dulcolax. He has noticed some chills, he states he just cannot stop shaking. The patient did have an abdominal surgery for colonic cancer resection 10 years ago. He thinks he still has his appendix and gallbladder. I ( Camron Vu MD) got a call for consult acute diverticulitis with abscess, I reviewed pt's H/P, labs Ct scan with pt, REVIEW OF SYSTEMS: See HPI for pertinent positives and negatives. A total of ten systems were reviewed and were otherwise negative. PMHx/PSHx: See Below SOCIAL HISTORY: See Below. Allergies Allergy/AdvReac Type Severity Reaction Status Date / Time No Known Allergies Allergy Unknown Verified 01/06/21 09:28 Home Medications Medication Instructions Recorded Confirmed Type atorvastatin 10 mg tablet (Lipitor) 10 mg PO QAM 04/12/19 01/06/21 History lisinopril 5 mg tablet (Zestril) 5 mg PO QAM 04/12/19 01/06/21 History multivitamin (Daily Multi-Vitamin) 1 tab PO QAM 04/12/19 01/06/21 History metoprolol succinate 25 mg 25 mg PO QAM 01/06/21 01/06/21 History tablet,extended release 24 hr (Toprol XL) tadalafil 5 mg tablet (Cialis) 5 mg PO DAILY PRN 01/06/21 01/06/21 History Patient History Medical History (Updated 01/06/21 @ 11:16 by Camron Vu MD) Pacemaker Surgical History (Updated 05/15/20 @ 12:53 by Joseph Morley) H/O knee surgery History of colon surgery History of prostate surgery Family History (Updated 05/15/20 @ 12:54 by Joseph Morley) Father Prostate cancer Social History (Updated 05/15/20 @ 12:54 by Joseph Morley) Smoking Status: Current every day smoker Cigarettes Per Day: 10; Hx Alcohol Use: Yes Hx Substance Use: No Preferred Language: Czech Communication Ability: Effective Mayonnaise Mixer Required: No Beliefs That Will Affect Care: None marital status: / Current Living Situation: Alone Feels Safe at Home: Yes Assistive Devices: None Review of Systems Constitutional: as per Subjective / HPI Eyes: as per Subjective / HPI Respiratory: as per Subjective / HPI Cardiovascular: Additional Comments: intermittent complete heart block Gastrointestinal: colectomy for colon cancer Genitourinary: + problem reported (prostate cancer) Neurologic: as per Subjective / HPI Hematologic / Lymphatic: as per Subjective / HPI Physical Exam Constitutional: WD/WN, vitals as above Eyes: PERRL, conjunctivae normal, anicteric sclerae Neck: trachea midline, no thyromegaly Respiratory: normal respiratory effort, lungs clear to auscultation Cardiovascular: RRR, no murmur, no edema Gastrointestinal (Abdomen): soft, mild tenderness at lower abdomen, no rebound pain, no distend, BS +, middle line scar, Musculoskeletal: no cyanosis or clubbing, extremities motor strength 5/5 Neurologic: patellar DTR's 2+ bilat, sensation intact Psychiatric: A+Ox3, euthymic affect Results & Data ([facility]) Vital Signs (Past 12 Hours) Vital Signs Temp Pulse Pulse Resp BP BP Pulse Ox 01/06/21 10:59 71 16 122/68 95 01/06/21 09:52 69 16 140/71 94 01/06/21 09:24 77 16 140/71 97 01/06/21 08:56 84 86 20 131/77 99 01/06/21 08:31 36.5 C 20 142/79 H Laboratory Results Abnormal lab results 01/06/21 01/06/21 01/06/21 Range/Units 08:45 09:11 Unknown WBC 20.51 H (4.8-10.8) K/uL RBC 4.46 L (4.7-6.1) M/uL RDW Std Deviation 49.1 H (36.4-46.3) fL MPV 11.2 H (7.4-10.4) fL Neut # (Auto) 19.09 H (1.4-6.5) K/uL Lymph # (Auto) 0.94 L (1.2-3.4) K/uL Immature Gran # (Auto) 0.04 H (0.00-0.02) K/uL BUN (7-18) mg/dl Creatinine (0.6-1.4) mg/dl Glucose (70-99) mg/dl Lactate 2.8 H* (0.4-2.0) mmol/L Total Bilirubin (0.2-1) mg/dl Globulin (2.5-4.0) gm/dl Albumin/Globulin Ratio (0.9-2) Urine Protein 3+ H (Negative) Urine Ketones 1+ H (Negative) Urine Blood 2+ H (Negative) Urine Nitrite Positive A (Negative) Urine Bilirubin 2+ H (Negative) Urine Bacteria 1+ H (Negative) 01/06/21 Range/Units Unknown WBC (4.8-10.8) K/uL RBC (4.7-6.1) M/uL RDW Std Deviation (36.4-46.3) fL MPV (7.4-10.4) fL Neut # (Auto) (1.4-6.5) K/uL Lymph # (Auto) (1.2-3.4) K/uL Immature Gran # (Auto) (0.00-0.02) K/uL BUN 30 H (7-18) mg/dl Creatinine 1.50 H (0.6-1.4) mg/dl Glucose 177 H (70-99) mg/dl Lactate (0.4-2.0) mmol/L Total Bilirubin 2.2 H (0.2-1) mg/dl Globulin 4.3 H (2.5-4.0) gm/dl Albumin/Globulin Ratio 0.8 L (0.9-2) Urine Protein (Negative) Urine Ketones (Negative) Urine Blood (Negative) Urine Nitrite (Negative) Urine Bilirubin (Negative) Urine Bacteria (Negative) Diagnostic Findings CT SCAN OF THE ABDOMEN AND PELVIS WITH IV CONTRAST CLINICAL HISTORY: Generalized abdominal pain. Chills. COMPARISON STUDY: Abdominal CT dated 11/03/2008. TECHNIQUE: Following the IV administration of 94 cc of Optiray 320, CT scan of the abdomen and pelvis is performed from the lung bases to the proximal femora. Images are reviewed in the axial, sagittal, and coronal planes. IV contrast was administered without complication. A dose lowering technique was utilized adhering to the principles of ALARA. CT DOSE: 312.87 mGy.cm FINDINGS: Lung bases: The heart is enlarged and and without pericardial effusion. Pacemaker leads are noted. Advanced emphysematous change is noted. A fat- containing Bochdalek hernia is seen at the right lung base. There are scattered calcified granulomas and dependent atelectasis. No airspace consolidation typical for pneumonia or pleural effusion is identified. There is a large hiatal hernia. Liver: The contrast-enhanced liver is normal in size, contour, and attenuation. There is no intrahepatic biliary ductal dilatation. The hepatic veins and portal veins are patent. Gallbladder: Unremarkable. Spleen: Normal in size and attenuation. There are scattered calcified splenic granulomas. The Pancreas: Unremarkable. Adrenal glands: Unremarkable. Kidneys: The contrast enhanced kidneys demonstrate cortical atrophy and are without hydronephrosis. The kidneys enhance symmetrically. A 10 mm cyst is noted in the left kidney. Additional subcentimeter cortical hypodensities also likely represent cysts but are too small for definitive characterization. Foci of cortical scarring are noted in both kidneys. Abdominal vasculature: There is moderate atherosclerotic calcification and mild ectasia of the abdominal aorta. Bowel: There is postoperative change from right colon resection with ileocolic anastomosis. The proximal small bowel loops are mildly distended and fluid- filled measuring up to 2.5 cm. No transition point is identified and there is no evidence of high-grade obstruction. Liquid stool seen throughout the colon. Focal dilatation of the right colon is nonspecific and may be related to denervation. There is moderate colonic diverticulosis. There is wall thickening with pericolonic inflammation involving the sigmoid colon typical for acute diverticulitis. There is a developing abscess adjacent the sigmoid colon in the deep pelvis to left of midline seen on image #328. This measures 2.0 x 4.2 x 1.8 cm. There are hyperemic appearing loops of small bowel in the right lower quadrant with mild surrounding infiltration. This is best seen on image #229. There is trace interloop fluid There is no pneumatosis intestinalis or portal venous gas. Peritoneum: There is no intraperitoneal free air. Trace free fluid is noted in the pelvis. There is a fat-containing umbilical hernia. Lymphadenopathy: Prominent retroperitoneal lymph nodes measure up to 9 mm in short axis. Pelvic viscera: The prostate gland is surgically absent. The bladder is decompressed, and the wall appears thickened and trabeculated. There is a fat- containing left inguinal hernia. Surgical clips are noted in the groin bilaterally. Skeletal structures: The skeletal structures are osteopenic. There is mild to moderate lumbosacral spondylosis, and bilateral pars defects are seen at L5 with 8 mm of anterolisthesis at L5-S1. No lytic or blastic lesions are seen. IMPRESSION: 1. There is moderate colonic diverticulosis with evidence of acute diverticulitis involving the sigmoid colon. 2. No intraperitoneal free air is identified. 3. There is a 2.0 x 4.2 x 1.8 cm developing abscess in the deep left pelvis adjacent to the sigmoid colon. 4. There is postoperative change from right-sided colonic resection with ileocolic anastomosis. No high-grade bowel obstruction is identified. 5. There is focal dilatation of the right colon at the anastomotic site which may be related to denervation. Liquid stool is seen throughout the colon. Additionally, there are mildly distended and fluid-filled loops of small bowel with no clear transition point identified. Mild inflammatory change is suggested involving several loops of small bowel in the right lower quadrant with trace associated interloop fluid. These findings could represent a nonspecific enterocolitis. Ileus or low-grade obstruction could also have this appearance. Clinical correlation will be required. 6. Cardiomegaly and emphysema. 7. Status post prostatectomy. 8. Large hiatal hernia. 9. Additional findings as above.
--- NOTE | 2021-01-06 12:06 | Electrocardiogram Report ---
Test Reason : Blood Pressure : / mmHG Vent. Rate : 085 BPM Atrial Rate : 085 BPM P-R Int : 196 ms QRS Dur : 142 ms QT Int : 392 ms P-R-T Axes : 000 -75 100 degrees QTc Int : 466 ms Atrial-sensed ventricular-paced rhythm Abnormal ECG When compared with ECG of 12-APR-2019 13:49, Vent. rate has increased BY 19 BPM Confirmed by Luisito Thayer ([id number]) on 01/06/2021 12:06:25 PM Referred By: REFERRED SELF Confirmed By:Luisito Thayer
[2021-01-06] MEDS ORDERED: metroNIDAZOLE 500 MG/100 ML BAG IV STA (12:14)
[2021-01-06] MEDS ORDERED: CIPROFLOXACIN / D5W 400 MG/200 ML BAG IV STA (12:14)
--- NOTE | 2021-01-06 12:35 | History & Physical Report ---
Date of Service January 06, 2021 Assessment & Plan (1) Acute diverticulitis: Plan: Sepsis Acute Diverticulitis with Abscess Possible Enterocolitis --CT ABD:There is moderate colonic diverticulosis with evidence of acute diverticulitis involving the sigmoid colon. There is a 2.0 x 4.2 x 1.8 cm developing abscess in the deep left pelvis adjacent to the sigmoid colon. There is postoperative change from right-sided colonic resection with ileocolic anastomosis. No high-grade bowel obstruction is identified. There is focal dilatation of the right colon at the anastomotic site which may be related to denervation. Liquid stool is seen throughout the colon. Additionally, there are mildly distended and fluid-filled loops of small bowel with no clear transition point identified. Mild inflammatory change is suggested involving several loops of small bowel in the right lower quadrant with trace associated interloop fluid. These findings could represent a nonspecific enterocolitis. Ileus or low- grade obstruction could also have this appearance. Clinical correlation will be required. Large hiatal hernia. -Surgery recommended transfer to tertiary care facility for possible percutaneous drainage by IR -ER physician discussed with interventional radiologist who recommended conservative management unless patient deteriorates given very small abscess and possible inability to drain it. -Appreciate surgery input -Consider stool studies if patient develops diarrhea Blood cultures obtained Lactate levels elevated--trend Started on Zosyn Continue IV fluids N.p.o. for now Pain control Abnormal urinalysis Rule out UTI Urine culture obtained Continue Zosyn as above Complete heart block S/P pacemaker Tobacco use disorder Refuses nicotine patch Counseled to quit next Alcohol use disorder Start on thiamine, folic acid Monitor for withdrawal H/O prostate cancer S/P radical prostatectomy H/O Colon cancer S/P resection CKD III Baseline creatinine 1.3-1.4 Creatinine 114 Monitor renal function Avoid nephrotoxic agents as able Hypertension Continue metoprolol Extremities no pedal edema Dyslipidemia Resume statin as able DVT Px: Heparin SQ Code Status DNI/DNR as per my discuss with patient History of Present Illness Chief Complaint: Abdominal Pain Primary Care Provider: Benita Lopez MD Patient is a 80-year-old male with history of complete heart block S/P pacemaker, prostate cancer S/P radical prostatectomy, colon cancer S/P resection, hypertension, tobacco use disorder, hyperlipidemia, CKD stage III and other medical problems presents with history of generalized abdominal pain since Thursday. Patient states that abdominal pain is bandlike, 9/10 intensity, increases with any movement and food intake. Patient has not been able to eat well since Thursday. His last bowel movement is on Thursday as well. He denies any nausea, vomiting, fever, diarrhea, blood in stools but admits to have chills.Denies any history of chest pain, SOB, palpitations, dizziness, cough, fall, trauma, headache, weight loss, dysuria, hematuria. Patient was evaluated by surgery while in ED and recommended transfer to tertiary care facility for percutaneous drainage by IR of abdominal abscess but ER physician discussed with interventional radiologist who suggested that the a bscess is too small to be drained and recommended conservative management unless patient deteriorates. Allergies Allergy/AdvReac Type Severity Reaction Status Date / Time No Known Allergies Allergy Unknown Verified 01/06/21 09:28 Home Medications Medication Instructions Recorded Confirmed Type atorvastatin 10 mg tablet (Lipitor) 10 mg PO QAM 04/12/19 01/06/21 History lisinopril 5 mg tablet (Zestril) 5 mg PO QAM 04/12/19 01/06/21 History multivitamin (Daily Multi-Vitamin) 1 tab PO QAM 04/12/19 01/06/21 History metoprolol succinate 25 mg 25 mg PO QAM 01/06/21 01/06/21 History tablet,extended release 24 hr (Toprol XL) tadalafil 5 mg tablet (Cialis) 5 mg PO DAILY PRN 01/06/21 01/06/21 History Past Med/Surg History Medical History Pacemaker Surgical History H/O knee surgery History of colon surgery History of prostate surgery Family History Father Prostate cancer Social History Smoking Status: Current every day smoker Cigarettes Per Day: 10; Hx Alcohol Use: Yes Hx Substance Use: No Preferred Language: Yi Communication Ability: Effective Computer Systems Technology Instructor Required: No Beliefs That Will Affect Care: None marital status: / Current Living Situation: Alone Other Information That Helps Us Care for You: No Feels Safe at Home: Yes Safety Concerns: Feels Safe At This Time Assistive Devices: None Review of Systems Review of Systems: All systems reviewed & are unremarkable except as noted in Subjective Results & Data Results & Data ([facility]) Vital Signs (Past 12 Hours) Vital Signs Temp Pulse Pulse Resp BP BP Pulse Ox 01/06/21 12:30 71 16 138/74 92 01/06/21 10:59 71 16 122/68 95 01/06/21 09:52 69 16 140/71 94 01/06/21 09:24 77 16 140/71 97 01/06/21 08:56 84 86 20 131/77 99 01/06/21 08:31 36.5 C 20 142/79 H Laboratory Results Short CBC 01/06/21 Range/Units Unknown WBC 20.51 H (4.8-10.8) K/uL Hgb 14.5 (14.0-18.0) g/dL Hct 43.2 (42-52) % Plt Count 277 (130-400) K/uL BMP 01/06/21 Unknown Sodium 138 Potassium 4.6 Chloride 104 Carbon Dioxide 27 BUN 30 H Creatinine 1.50 H Glucose 177 H Calcium 9.2 Cardiac Enzymes 01/06/21 Range/Units Unknown Troponin I < 0.015 (0-0.045) ng/ml Liver Function 01/06/21 Range/Units Unknown Total Bilirubin 2.2 H (0.2-1) mg/dl AST 16 (15-37) U/L ALT 17 (12-78) U/L Alkaline Phosphatase 80 (45-117) U/L Albumin 3.6 (3.4-5.0) gm/dl Urine 01/06/21 Range/Units 08:45 Urine Color Selam Urine Appearance Clear (Clear) Urine pH 5.5 (4.5-7.5) Ur Specific [place] >= 1.030 (1.000-1.030) Urine Protein 3+ H (Negative) Urine Glucose (UA) Negative (Negative) Diagnostic Findings CT ABD: 1. There is moderate colonic diverticulosis with evidence of acute diverticulitis involving the sigmoid colon. 2. No intraperitoneal free air is identified. 3. There is a 2.0 x 4.2 x 1.8 cm developing abscess in the deep left pelvis adjacent to the sigmoid colon. 4. There is postoperative change from right-sided colonic resection with ileocolic anastomosis. No high-grade bowel obstruction is identified. 5. There is focal dilatation of the right colon at the anastomotic site which may be related to denervation. Liquid stool is seen throughout the colon. Additionally, there are mildly distended and fluid-filled loops of small bowel with no clear transition point identified. Mild inflammatory change is suggested involving several loops of small bowel in the right lower quadrant with trace associated interloop fluid. These findings could represent a nonspecific enterocolitis. Ileus or low-grade obstruction could also have this appearance. Clinical correlation will be required. 6. Cardiomegaly and emphysema. 7. Status post prostatectomy. 8. Large hiatal hernia.
[2021-01-06] MEDS ORDERED: SODIUM CHLORIDE 0.9% 1000ML 1,000 ML IV ONE (12:47)
[2021-01-06] MEDS ORDERED: CONSULT PHARMACY STA (12:52)
[2021-01-06] MEDS ORDERED: ONDANSETRON INJ 2 MG/ML 2 ML VIAL IV PRN (14:20)
[2021-01-06] MEDS ORDERED: POLYETHYLENE (MIRALAX) 17 GM PACK PO PRN (14:20)
[2021-01-06] MEDS ORDERED: ACETAMINOPHEN 325 MG TAB PO PRN (14:20)
[2021-01-06] MEDS ORDERED: LORazepam 3 MG/6 ML VIAL IV PRN (15:21)
[2021-01-06] MEDS ORDERED: LORazepam 2 MG/4 ML VIAL IV PRN (15:21)
[2021-01-06] MEDS ORDERED: ATIVAN IV ALCOHOL WITHDRAWL IV PRN (15:21)
[2021-01-06] MEDS ORDERED: LORazepam 1 MG/2 ML VIAL IV PRN (15:21)
[2021-01-06] MEDS: SODIUM CHLORIDE 0.9% 1000ML 1,000 ML IV SCH ×2 (16:51→22:49)
[2021-01-06] MEDS: PIPERACILLIN/TAZOBACTAM 3.375 GM in DEXTROSE 5% 100 ML IV SCH (17:06)
[2021-01-06] MEDS: HEPARIN SOD 5,000 UNIT/0.5 ML VIAL SQ SCH (22:17)
[2021-01-07] MEDS: PIPERACILLIN/TAZOBACTAM 3.375 GM in DEXTROSE 5% 100 ML IV SCH ×4 (01:12→23:39)
[2021-01-07] MEDS: SODIUM CHLORIDE 0.9% 1000ML 1,000 ML IV SCH ×4 (05:57→23:39)
[2021-01-07] MEDS: MoRPHine SULFATE 2 MG/ML CARP IV PRN ×2 (05:58→10:49)
[2021-01-07 07:44] LABS: Albumin Level 2.5 gm/dl (3.4-5.0); BUN Creatinine Ratio 23.6 (10-20); Calcium 8.4 mg/dl (8.5-10.1); Creatinine Clr Calc Pharmacy 42.5 ml/min; Est GFR (African American) 54.5 ml/min; Magnesium 2.6 mg/dl (1.8-2.4); Potassium 4.4 mmol/L (3.5-5.1)
[2021-01-07 07:52] LABS: Albumin Globulin Ratio 0.7 (0.9-2); Globulin 3.8 gm/dl (2.5-4.0); Total Protein 6.3 gm/dl (6.4-8.2)
[2021-01-07 08:17] LABS: Basophils # (auto) 0.01 K/uL (0-0.2); Eosinophils # (auto) 0.03 K/uL (0-0.5); Eosinophils % (auto) 0.1 %; Hematocrit (blood only) 34.7 % (42-52); Hemoglobin 11.5 g/dL (14.0-18.0); Immature Granulocytes # (auto) 0.05 K/uL (0.00-0.02); Immature Granulocytes % (auto) 0.2 %; Lymphocytes # (auto) 1.08 K/uL (1.2-3.4); Lymphocytes % (auto) 5.1 %; Mean Corpuscular Hemoglobin 31.3 pg (25-34); Mean Corpuscular Hgb Conc 33.1 g/dL (32-36); Mean Corpuscular Volume 94.6 fL (80-100); Mean Platelet Volume 11.1 fL (7.4-10.4); Monocytes # (auto) 0.81 K/uL (0.11-0.59); Monocytes % (auto) 3.8 %; Neutrophils # (auto) 19.37 K/uL (1.4-6.5); Neutrophils % (auto) 90.8 %; Platelet Count 226 K/uL (130-400); RDW Coefficient of Variation 14.1 % (11.5-14.5); RDW Standard Deviation 48.7 fL (36.4-46.3); Red Blood Count 3.67 M/uL (4.7-6.1); White Blood Count 21.35 K/uL (4.8-10.8)
[2021-01-07] MEDS: FOLIC ACID 1 MG in SYRINGE 9.8 ML IV SCH (08:44)
[2021-01-07] MEDS: THIAMINE HCL 100 MG in SYRINGE 9 ML IV SCH (08:45)
[2021-01-07] MEDS: HEPARIN SOD 5,000 UNIT/0.5 ML VIAL SQ SCH ×2 (10:44→20:03)
[2021-01-07] MEDS: METOPROLOL SUCC 25MG EXT REL TAB PO SCH (10:44)
[2021-01-07] MEDS: metroNIDAZOLE 500 MG/100 ML BAG IV SCH ×2 (12:32→20:03)
--- NOTE | 2021-01-07 14:21 | Surgery Progress Note ---
Date of Service January 07, 2021 Assessment & Plan (1) Acute diverticulitis: Plan: 80 year-old male who presented to ER with 2 day history abdominal pain. CT scan showing acute sigmoid diverticulitis with 4.2 cm abscess. Leukocytosis of 20K and now 21K. Afebrile. Plan: IR contact by ED physician and they did not recommend drainage as abscess small and possibly unable to drain via IR approach. Continue conservative measures with IV antibiotics, pain management as needed, NPO for bowel rest. Monitor cbc with am labs encourage ambulation will continue to follow Dr. Vu has seen patient and agrees with above. Admission and Anticipated Discharge Date Admission Date: January 06, 2021 Subjective abdominal pain is "slightly improved today but not by much" no nausea or vomiting does feel a little bloated passing small amount of flatus no bowel movement Physical Exam Constitutional: WD/WN, vitals as above no acute distress and not ill appearing Respiratory: normal respiratory effort; no respiratory distress, no labored breathing and no retractions Gastrointestinal (Abdomen): Inspection/Auscultation: + abdomen distended (mild), + abdominal surgical scar (midline laparotomy incision present) and + hypoactive bowel sounds; + abnormal bowel sounds Percussion/Palpation: + abdomen tender (LLQ) and abdomen soft; no guarding and abdomen not rigid Skin: no rashes, warm and dry Psychiatric: A+Ox3, euthymic affect Results & Data ([facility]) Vital Signs (Past 12 Hours) Vital Signs Temp Pulse Pulse Resp BP BP Pulse Ox 01/07/21 10:43 36.6 C 75 16 148/87 H 93 01/07/21 08:00 61 01/07/21 07:01 36.8 C 80 20 139/73 90 01/07/21 04:49 37.1 C 61 18 118/71 91 Laboratory Results 01/07/21 01/07/21 01/06/21 Range/Units 06:54 06:54 14:46 WBC 21.35 H (4.8-10.8) K/uL RBC 3.67 L (4.7-6.1) M/uL Hgb 11.5 L D (14.0-18.0) g/dL Hct 34.7 L (42-52) % MCV 94.6 (80-100) fL MCH 31.3 (25-34) pg MCHC 33.1 (32-36) g/dL RDW Std Deviation 48.7 H (36.4-46.3) fL RDW Coeff of Trupti 14.1 (11.5-14.5) % Plt Count 226 (130-400) K/uL MPV 11.1 H (7.4-10.4) fL Immature Gran % (Auto) 0.2 % Neut % (Auto) 90.8 % Lymph % (Auto) 5.1 % [place] % (Auto) 3.8 % Eos % (Auto) 0.1 % Baso % (Auto) 0.0 % Neut # (Auto) 19.37 H (1.4-6.5) K/uL Lymph # (Auto) 1.08 L (1.2-3.4) K/uL [place] # (Auto) 0.81 H (0.11-0.59) K/uL Eos # (Auto) 0.03 (0-0.5) K/uL Baso # (Auto) 0.01 (0-0.2) K/uL Immature Gran # (Auto) 0.05 H (0.00-0.02) K/uL Sodium 140 (136-145) mmol/L Potassium 4.4 (3.5-5.1) mmol/L Chloride 110 H (98-107) mmol/L Carbon Dioxide 24 (21-32) mmol/L Anion Gap 6.0 (3-11) BUN 33 H (7-18) mg/dl Creatinine 1.41 H (0.6-1.4) mg/dl Est Cr Clr Drug Dosing 42.5 ml/min Est GFR ( Amer) 54.5 ml/min Est GFR (Non-Af Amer) 47.0 ml/min BUN/Creatinine Ratio 23.6 H (10-20) Glucose 96 (70-99) mg/dl Lactate 1.5 (0.4-2.0) mmol/L Calcium 8.4 L (8.5-10.1) mg/dl Magnesium 2.6 H (1.8-2.4) mg/dl Total Bilirubin 2.0 H (0.2-1) mg/dl AST 19 (15-37) U/L ALT 13 (12-78) U/L Alkaline Phosphatase 78 (45-117) U/L Total Protein 6.3 L D (6.4-8.2) gm/dl Albumin 2.5 L (3.4-5.0) gm/dl Globulin 3.8 (2.5-4.0) gm/dl Albumin/Globulin Ratio 0.7 L (0.9-2)
--- NOTE | 2021-01-07 18:37 | Hospitalist Progress Note ---
Date of Service January 07, 2021 Assessment & Plan (1) Acute diverticulitis: Plan: Sepsis Acute Diverticulitis with Abscess Possible Enterocolitis --CT ABD:There is moderate colonic diverticulosis with evidence of acute diverticulitis involving the sigmoid colon. There is a 2.0 x 4.2 x 1.8 cm developing abscess in the deep left pelvis adjacent to the sigmoid colon. There is postoperative change from right-sided colonic resection with ileocolic anastomosis. No high-grade bowel obstruction is identified. There is focal dilatation of the right colon at the anastomotic site which may be related to denervation. Liquid stool is seen throughout the colon. Additionally, there are mildly distended and fluid-filled loops of small bowel with no clear transition point identified. Mild inflammatory change is suggested involving several loops of small bowel in the right lower quadrant with trace associated interloop fluid. These findings could represent a nonspecific enterocolitis. Ileus or low- grade obstruction could also have this appearance. Clinical correlation will be required. Large hiatal hernia. -Surgery recommended transfer to tertiary care facility for possible percutaneous drainage by IR -ER physician discussed with interventional radiologist who recommended conservative management unless patient deteriorates given very small abscess and possible inability to drain it. -Appreciate surgery input -Consider stool studies if patient develops diarrhea Blood cultures No growth Lactate levels Normalized Continue Zosyn Day #2 Continue IV fluids N.p.o. for now Pain control Plan for KUB tomorrow Abnormal urinalysis UTI ruled out Urine culture Negative Complete heart block S/P pacemaker Tobacco use disorder Refuses nicotine patch Counseled to quit next Alcohol use disorder Start on thiamine, folic acid Monitor for withdrawal H/O prostate cancer S/P radical prostatectomy H/O Colon cancer S/P resection CKD III Baseline creatinine 1.3-1.4 Creatinine 1.41 Monitor renal function Avoid nephrotoxic agents as able Hypertension Continue metoprolol Resume Lisinopril as able Dyslipidemia Resume statin as able DVT Px: Heparin SQ Code Status DNI/DNR as per my discuss with patient Admission and Anticipated Discharge Date Admission Date: January 06, 2021 Subjective Patient is seen and examined at bedside Abdominal pain slightly better today + Flatus but no bowel movement today Feels slightly bloated Denies nausea, vomiting, chest pain, dyspnea Review of Systems Review of Systems: All systems reviewed & are unremarkable except as noted in Subjective Physical Exam Physical Exam: Physical Exam: Vitals signs as noted above General Appearance:Moderately built and nourished, no apparent distress Head: normocephalic, Atraumatic Eyes: normal inspection, EOMI Neck: supple, Trachea midline Respiratory/Chest: Decreased breath sounds, CTA, No accessory muscle use Cardiovascular: S1, S2, No murmur, +Pacemaker Abdomen/GI:Soft, mild LLQ tender, No guarding or rigidity, Bowel sounds present Extremities/Musculoskeletal:normal inspection, no edema Neurologic/Psych:AAOX3, grossly no focal neurological deficits Skin: normal color, warm Results & Data Results & Data ([facility]) Vital Signs (Past 12 Hours) Vital Signs Temp Pulse Pulse Resp BP BP Pulse Ox 01/07/21 15:39 37.3 C 61 18 157/81 H 90 01/07/21 15:00 65 01/07/21 10:43 36.6 C 75 16 148/87 H 93 01/07/21 08:00 61 01/07/21 07:01 36.8 C 80 20 139/73 90 Laboratory Results Short CBC 01/07/21 Range/Units 06:54 WBC 21.35 H (4.8-10.8) K/uL Hgb 11.5 L D (14.0-18.0) g/dL Hct 34.7 L (42-52) % Plt Count 226 (130-400) K/uL BMP 01/07/21 06:54 Sodium 140 Potassium 4.4 Chloride 110 H Carbon Dioxide 24 BUN 33 H Creatinine 1.41 H Glucose 96 Calcium 8.4 L Liver Function 01/07/21 Range/Units 06:54 Total Bilirubin 2.0 H (0.2-1) mg/dl AST 19 (15-37) U/L ALT 13 (12-78) U/L Alkaline Phosphatase 78 (45-117) U/L Albumin 2.5 L (3.4-5.0) gm/dl
[2021-01-08] MEDS: metroNIDAZOLE 500 MG/100 ML BAG IV SCH ×2 (04:30→12:16)
[2021-01-08] MEDS: SODIUM CHLORIDE 0.9% 1000ML 1,000 ML IV SCH ×2 (05:19→12:16)
[2021-01-08 06:42] LABS: Basophils # (auto) 0.01 K/uL (0-0.2); Basophils % (auto) 0.1 %; Hematocrit (blood only) 36.1 % (42-52); Hemoglobin 12.1 g/dL (14.0-18.0); Immature Granulocytes # (auto) 0.06 K/uL (0.00-0.02); Immature Granulocytes % (auto) 0.3 %; Lymphocytes # (auto) 0.75 K/uL (1.2-3.4); Lymphocytes % (auto) 3.8 %; Mean Corpuscular Hemoglobin 31.2 pg (25-34); Mean Corpuscular Hgb Conc 33.5 g/dL (32-36); Mean Platelet Volume 11.4 fL (7.4-10.4); Monocytes # (auto) 0.78 K/uL (0.11-0.59); Neutrophils # (auto) 18.12 K/uL (1.4-6.5); Neutrophils % (auto) 91.8 %; Platelet Count 275 K/uL (130-400); RDW Coefficient of Variation 13.8 % (11.5-14.5); RDW Standard Deviation 46.9 fL (36.4-46.3); Red Blood Count 3.88 M/uL (4.7-6.1); White Blood Count 19.72 K/uL (4.8-10.8)
[2021-01-08 07:01] LABS: Albumin Level 2.4 gm/dl (3.4-5.0); Calcium 8.2 mg/dl (8.5-10.1); Creatinine Clr Calc Pharmacy 48.3 ml/min; Est GFR (African American) 63.7 ml/min; Est GFR (Non-African American) 54.9 ml/min
[2021-01-08 07:12] LABS: Albumin Globulin Ratio 0.6 (0.9-2); Bilirubin,Total 1.3 mg/dl (0.2-1); Globulin 3.9 gm/dl (2.5-4.0); Total Protein 6.3 gm/dl (6.4-8.2)
[2021-01-08] MEDS: PIPERACILLIN/TAZOBACTAM 3.375 GM in DEXTROSE 5% 100 ML IV SCH ×2 (07:33→15:57)
[2021-01-08] MEDS: THIAMINE HCL 100 MG in SYRINGE 9 ML IV SCH (07:34)
[2021-01-08] MEDS: FOLIC ACID 1 MG in SYRINGE 9.8 ML IV SCH (07:34)
[2021-01-08] MEDS: METOPROLOL SUCC 25MG EXT REL TAB PO SCH (07:34)
[2021-01-08] MEDS: HEPARIN SOD 5,000 UNIT/0.5 ML VIAL SQ SCH ×2 (07:35→20:34)
--- NOTE | 2021-01-08 08:54 | XRay Report ---
KUB CLINICAL HISTORY: Ileus. FINDINGS: 2 AP supine abdominal radiographs are correlated with abdominal CT dated 01/06/2021. The sm all bowel loops are distended and fluid-filled measuring up to 4.5 cm in diameter. Gas is also seen i n the colon. Suture material projects over the right mid abdomen. No evidence of intraperitoneal free air is identified on the supine images. Numerous surgical clips are seen throughout the pelvis. Ther e are no abnormal abdominal calcifications. The skeletal structures are osteopenic and appear intact. IMPRESSION: There is gaseous distention of the small bowel loops. This could represent ileus versus o bstruction and clinical correlation will be required. Electronically signed by: Masood Douglas M.D. 01/08/2021 8:53 AM
[2021-01-08] MEDS ORDERED: hydrALAZINE HCL 20 MG/ML VIAL IV PRN (10:37)
--- NOTE | 2021-01-08 12:15 | Surgery Progress Note ---
Date of Service January 08, 2021 Assessment & Plan (1) Acute diverticulitis: Plan: 80 year-old male who presented to ER with 2 day history abdominal pain. CT scan showing acute sigmoid diverticulitis with 4.2 cm abscess. Leukocytosis of 20K and now 21K. Afebrile. Plan: IR contact by ED physician and they did not recommend drainage as abscess small and possibly unable to drain via IR approach. Continue conservative measures with IV antibiotics, pain management as needed, NPO for bowel rest. Monitor cbc with am labs encourage ambulation will continue to follow Dr. Vu has seen patient and agrees with above. 01/08/2021 12:13PM 80 year-old male who presented to ER with 2 day history abdominal pain. CT scan showing acute sigmoid diverticulitis with 4.2 cm abscess. Leukocytosis of 21K and now 19K. Afebrile. pt feels better, no abdominal pain, clear diet, OOB continue IV antibiotic treatment, repeat labs in morning, will F/U Admission and Anticipated Discharge Date Admission Date: January 06, 2021 Subjective Patient is seen and examined at bedside Abdominal pain slightly better today + Flatus but no bowel movement today Feels slightly bloated Denies nausea, vomiting, chest pain, dyspnea 01/08/2021 12:12PM pt is doing better, no significant abdominal pain, no fever, passed BM , no bloody stool, Review of Systems Constitutional: as per Subjective / HPI Eyes: as per Subjective / HPI Respiratory: as per Subjective / HPI Cardiovascular: Additional Comments: intermittent complete heart block Gastrointestinal: colectomy for colon cancer Genitourinary: + problem reported (prostate cancer) Neurologic: as per Subjective / HPI Hematologic / Lymphatic: as per Subjective / HPI Physical Exam Constitutional: WD/WN, vitals as above Eyes: PERRL, conjunctivae normal, anicteric sclerae Neck: trachea midline, no thyromegaly Respiratory: normal respiratory effort, lungs clear to auscultation Cardiovascular: RRR, no murmur, no edema Gastrointestinal (Abdomen): soft, NT, ND, BS + Musculoskeletal: no cyanosis or clubbing, extremities motor strength 5/5 Neurologic: patellar DTR's 2+ bilat, sensation intact Psychiatric: A+Ox3, euthymic affect Results & Data ([facility]) Vital Signs (Past 12 Hours) Vital Signs Temp Pulse Pulse Resp BP BP Pulse Ox 01/08/21 11:11 37.2 C 80 16 157/84 H 94 01/08/21 07:32 37.2 C 75 18 175/107 H 182/85 H 91 01/08/21 05:07 37.3 C 66 18 180/103 H 92 01/08/21 04:43 65 Laboratory Results Abnormal lab results 01/08/21 01/08/21 Range/Units 05:51 05:51 WBC 19.72 H (4.8-10.8) K/uL RBC 3.88 L (4.7-6.1) M/uL Hgb 12.1 L (14.0-18.0) g/dL Hct 36.1 L (42-52) % RDW Std Deviation 46.9 H (36.4-46.3) fL MPV 11.4 H (7.4-10.4) fL Neut # (Auto) 18.12 H (1.4-6.5) K/uL Lymph # (Auto) 0.75 L (1.2-3.4) K/uL [place] # (Auto) 0.78 H (0.11-0.59) K/uL Immature Gran # (Auto) 0.06 H (0.00-0.02) K/uL Chloride 112 H (98-107) mmol/L Carbon Dioxide 20 L (21-32) mmol/L BUN 36 H (7-18) mg/dl BUN/Creatinine Ratio 29.0 H (10-20) Glucose 132 H (70-99) mg/dl Calcium 8.2 L (8.5-10.1) mg/dl Total Bilirubin 1.3 H (0.2-1) mg/dl ALT 11 L (12-78) U/L Total Protein 6.3 L (6.4-8.2) gm/dl Albumin 2.4 L (3.4-5.0) gm/dl Albumin/Globulin Ratio 0.6 L (0.9-2)
[2021-01-08 16:16] LABS: Cdiff Antigen Negative; Cdiff Toxin A+B Negative Cdiff Toxin (Negative)
[2021-01-08] MEDS: LACTOBACILLUS ACIDOPHILUS 1 GM PACK PO SCH (17:50)
--- NOTE | 2021-01-08 18:22 | Hospitalist Progress Note ---
Date of Service January 08, 2021 Assessment & Plan (1) Acute diverticulitis: Plan: Sepsis Acute Diverticulitis with Abscess Possible Enterocolitis --CT ABD:There is moderate colonic diverticulosis with evidence of acute diverticulitis involving the sigmoid colon. There is a 2.0 x 4.2 x 1.8 cm developing abscess in the deep left pelvis adjacent to the sigmoid colon. There is postoperative change from right-sided colonic resection with ileocolic anastomosis. No high-grade bowel obstruction is identified. There is focal dilatation of the right colon at the anastomotic site which may be related to denervation. Liquid stool is seen throughout the colon. Additionally, there are mildly distended and fluid-filled loops of small bowel with no clear transition point identified. Mild inflammatory change is suggested involving several loops of small bowel in the right lower quadrant with trace associated interloop fluid. These findings could represent a nonspecific enterocolitis. Ileus or low- grade obstruction could also have this appearance. Clinical correlation will be required. Large hiatal hernia. -Surgery recommended transfer to tertiary care facility for possible percutaneous drainage by IR -ER physician discussed with interventional radiologist who recommended conservative management unless patient deteriorates given very small abscess and possible inability to drain it. -Appreciate surgery input -Consider stool studies if patient develops diarrhea Blood cultures No growth Lactate levels Normalized Continue Zosyn Day #3 Continue IV fluids Clear liquid diet as per surgery Possible Ileus KUB:There is gaseous distention of the small bowel loops. This could represent ileus versus obstruction and clinical correlation will be required. Had bowel movement today Repeat KUB tomorrow Diarrhea Likely secondary to antibiotics Stool for C. difficile negative Abnormal urinalysis UTI ruled out Urine culture Negative Complete heart block S/P pacemaker Tobacco use disorder Refuses nicotine patch Counseled to quit next Alcohol use disorder Continue thiamine, folic acid Monitor for withdrawal H/O prostate cancer S/P radical prostatectomy H/O Colon cancer S/P resection CKD III Baseline creatinine 1.3-1.4 Creatinine 1.24 today Monitor renal function Avoid nephrotoxic agents as able Hypertension Continue metoprolol Resume Lisinopril as able Hydralazine PRN Dyslipidemia Resume statin DVT Px: Heparin SQ Code Status DNI/DNR as per my discuss with patient Admission and Anticipated Discharge Date Admission Date: January 06, 2021 Subjective Patient is seen and examined at bedside Abdominal pain much improved today Discussed with surgery today States having diarrhea Leukocytosis slightly better today Offers no other complaints Review of Systems Review of Systems: All systems reviewed & are unremarkable except as noted in Subjective Physical Exam Physical Exam: Physical Exam: Vitals signs as noted above General Appearance:Moderately built and nourished, no apparent distress Head: normocephalic, Atraumatic Eyes: normal inspection, EOMI Neck: supple, Trachea midline Respiratory/Chest: Decreased breath sounds, CTA, No accessory muscle use Cardiovascular: S1, S2, No murmur, +Pacemaker Abdomen/GI:Soft, non tender, No guarding or rigidity, Bowel sounds present Extremities/Musculoskeletal:normal inspection, no edema Neurologic/Psych:AAOX3, grossly no focal neurological deficits Skin: normal color, warm Results & Data Results & Data ([facility]) Vital Signs (Past 12 Hours) Vital Signs Temp Pulse Pulse Resp BP BP Pulse Ox 01/08/21 15:15 36.9 C 63 16 144/80 H 94 01/08/21 15:00 64 01/08/21 11:11 37.2 C 80 16 157/84 H 94 01/08/21 08:00 67 01/08/21 07:32 37.2 C 75 18 175/107 H 182/85 H 91 Laboratory Results Short CBC 01/08/21 Range/Units 05:51 WBC 19.72 H (4.8-10.8) K/uL Hgb 12.1 L (14.0-18.0) g/dL Hct 36.1 L (42-52) % Plt Count 275 (130-400) K/uL BMP 01/08/21 05:51 Sodium 140 Potassium 4.0 Chloride 112 H Carbon Dioxide 20 L BUN 36 H Creatinine 1.24 Glucose 132 H Calcium 8.2 L Liver Function 01/08/21 Range/Units 05:51 Total Bilirubin 1.3 H (0.2-1) mg/dl AST 18 (15-37) U/L ALT 11 L (12-78) U/L Alkaline Phosphatase 72 (45-117) U/L Albumin 2.4 L (3.4-5.0) gm/dl
[2021-01-09] MEDS: PIPERACILLIN/TAZOBACTAM 3.375 GM in DEXTROSE 5% 100 ML IV SCH ×4 (00:02→23:58)
[2021-01-09] MEDS: SODIUM CHLORIDE 0.9% 1000ML 1,000 ML IV SCH ×2 (02:25→20:23)
[2021-01-09 07:38] LABS: Basophils # (auto) 0.02 K/uL (0-0.2); Basophils % (auto) 0.1 %; Eosinophils # (auto) 0.07 K/uL (0-0.5); Eosinophils % (auto) 0.4 %; Hematocrit (blood only) 36.6 % (42-52); Hemoglobin 12.2 g/dL (14.0-18.0); Immature Granulocytes # (auto) 0.07 K/uL (0.00-0.02); Immature Granulocytes % (auto) 0.4 %; Lymphocytes # (auto) 1.37 K/uL (1.2-3.4); Lymphocytes % (auto) 8.3 %; Mean Corpuscular Hemoglobin 31.8 pg (25-34); Mean Corpuscular Hgb Conc 33.3 g/dL (32-36); Mean Corpuscular Volume 95.3 fL (80-100); Mean Platelet Volume 10.8 fL (7.4-10.4); Monocytes # (auto) 0.85 K/uL (0.11-0.59); Monocytes % (auto) 5.2 %; Neutrophils # (auto) 14.06 K/uL (1.4-6.5); Neutrophils % (auto) 85.6 %; Platelet Count 297 K/uL (130-400); RDW Coefficient of Variation 13.8 % (11.5-14.5); RDW Standard Deviation 47.8 fL (36.4-46.3); Red Blood Count 3.84 M/uL (4.7-6.1); White Blood Count 16.44 K/uL (4.8-10.8)
[2021-01-09 08:18] LABS: Albumin Level 2.6 gm/dl (3.4-5.0); BUN Creatinine Ratio 25.4 (10-20); Calcium 8.6 mg/dl (8.5-10.1); Creatinine Clr Calc Pharmacy 51.6 ml/min; Est GFR (Non-African American) 59.6 ml/min; Magnesium 2.3 mg/dl (1.8-2.4); Potassium 3.5 mmol/L (3.5-5.1)
[2021-01-09 08:30] LABS: Albumin Globulin Ratio 0.6 (0.9-2); Bilirubin,Total 1.2 mg/dl (0.2-1); Phosphorus 1.4 mg/dl (2.5-4.9); Total Protein 6.6 gm/dl (6.4-8.2)
[2021-01-09] MEDS ORDERED: POTASSIUM PHOS 3 MMOL/1 ML INFUSION IV STA (08:40)
[2021-01-09] MEDS ORDERED: POTASSIUM CHLORIDE CRTAB 20 MEQ TABCR PO STA ×2 (08:43→14:37)
--- NOTE | 2021-01-09 08:43 | Hospitalist Progress Note ---
Date of Service January 09, 2021 Assessment & Plan (1) Acute diverticulitis: Plan: Sepsis Acute Diverticulitis with Abscess Possible Enterocolitis --CT ABD:There is moderate colonic diverticulosis with evidence of acute diverticulitis involving the sigmoid colon. There is a 2.0 x 4.2 x 1.8 cm developing abscess in the deep left pelvis adjacent to the sigmoid colon. There is postoperative change from right-sided colonic resection with ileocolic anastomosis. No high-grade bowel obstruction is identified. There is focal dilatation of the right colon at the anastomotic site which may be related to denervation. Liquid stool is seen throughout the colon. Additionally, there are mildly distended and fluid-filled loops of small bowel with no clear transition point identified. Mild inflammatory change is suggested involving several loops of small bowel in the right lower quadrant with trace associated interloop fluid. These findings could represent a nonspecific enterocolitis. Ileus or low- grade obstruction could also have this appearance. Clinical correlation will be required. Large hiatal hernia. -Surgery recommended transfer to tertiary care facility for possible percutaneous drainage by IR -ER physician discussed with interventional radiologist who recommended conservative management unless patient deteriorates given very small abscess and possible inability to drain it. -Appreciate surgery input -Ordered stool studies as pt has diarrhea now C. difficile gene positive, C. difficile toxin negative Blood cultures No growth Lactate levels Normalized Continue Zosyn Day #4 Continue IV fluids Clear liquid diet as per surgery initially, advance to full liquid now Possible Ileus KUB:There is gaseous distention of the small bowel loops. This could represent ileus versus obstruction and clinical correlation will be required. Had bowel movement today Repeat KUB tomorrow Diarrhea Likely secondary to antibiotics Stool for C. difficile negative Ordered stool cultx, WBC Abnormal urinalysis UTI ruled out Urine culture Negative Complete heart block S/P pacemaker Tobacco use disorder Refuses nicotine patch Counseled to quit next Alcohol use disorder Continue thiamine, folic acid Monitor for withdrawal H/O prostate cancer S/P radical prostatectomy H/O Colon cancer S/P resection CKD III Baseline creatinine 1.3-1.4 Creatinine 1.2 today Monitor renal function Avoid nephrotoxic agents as able Hypertension Continue metoprolol Resume Lisinopril as able Hydralazine PRN Dyslipidemia Resume statin DVT Px: Heparin SQ Code Status DNI/DNR as per admitting provider discussion with patient Admission and Anticipated Discharge Date Admission Date: January 06, 2021 Subjective Patient is seen in follow-up of diverticulitis, abscess Abdominal pain much improved today Seen by surgery today, diet advanced to full liquid No fevers chills, chest pain shortness of breath, nausea vomiting States having diarrhea -C. difficile toxin negative Leukocytosis slightly better today Review of Systems Review of Systems: All systems reviewed & are unremarkable except as noted in Subjective Physical Exam Physical Exam: General Appearance:Moderately built and nourished, no apparent distress Head: normocephalic, Atraumatic Eyes: normal inspection, EOMI Neck: supple, Trachea midline Respiratory/Chest: Decreased breath sounds, CTA, No accessory muscle use Cardiovascular: S1, S2, No murmur, +Pacemaker Abdomen/GI:Soft, non tender, No guarding or rigidity, Bowel sounds present Extremities/Musculoskeletal:normal inspection, no edema Neurologic/Psych:AAOX3, grossly no focal neurological deficits Skin: normal color, warm Results & Data Results & Data ([facility]) Vital Signs (Past 12 Hours) Vital Signs Temp Pulse Pulse Resp BP Pulse Ox 01/09/21 07:43 36.7 C 67 18 164/80 H 95 01/09/21 04:00 37.2 C 64 18 157/71 H 93 01/09/21 00:07 62 01/08/21 23:00 37.1 C 63 18 141/92 H 93 Laboratory Results 01/09/21 01/09/21 01/08/21 Range/Units 07:19 07:19 13:23 WBC 16.44 H (4.8-10.8) K/uL RBC 3.84 L (4.7-6.1) M/uL Hgb 12.2 L (14.0-18.0) g/dL Hct 36.6 L (42-52) % MCV 95.3 (80-100) fL MCH 31.8 (25-34) pg MCHC 33.3 (32-36) g/dL RDW Std Deviation 47.8 H (36.4-46.3) fL RDW Coeff of Trupti 13.8 (11.5-14.5) % Plt Count 297 (130-400) K/uL MPV 10.8 H (7.4-10.4) fL Immature Gran % (Auto) 0.4 % Neut % (Auto) 85.6 % Lymph % (Auto) 8.3 % [place] % (Auto) 5.2 % Eos % (Auto) 0.4 % Baso % (Auto) 0.1 % Neut # (Auto) 14.06 H (1.4-6.5) K/uL Lymph # (Auto) 1.37 (1.2-3.4) K/uL [place] # (Auto) 0.85 H (0.11-0.59) K/uL Eos # (Auto) 0.07 (0-0.5) K/uL Baso # (Auto) 0.02 (0-0.2) K/uL Immature Gran # (Auto) 0.07 H (0.00-0.02) K/uL Sodium 142 (136-145) mmol/L Potassium 3.5 (3.5-5.1) mmol/L Chloride 112 H (98-107) mmol/L Carbon Dioxide 23 (21-32) mmol/L Anion Gap 7.0 (3-11) BUN 30 H (7-18) mg/dl Creatinine 1.16 (0.6-1.4) mg/dl Est Cr Clr Drug Dosing 51.6 ml/min Est GFR ( Amer) 69.0 ml/min Est GFR (Non-Af Amer) 59.6 ml/min BUN/Creatinine Ratio 25.4 H (10-20) Glucose 108 H (70-99) mg/dl Calcium 8.6 (8.5-10.1) mg/dl Phosphorus 1.4 L* (2.5-4.9) mg/dl Magnesium 2.3 (1.8-2.4) mg/dl Total Bilirubin 1.2 H (0.2-1) mg/dl AST 32 (15-37) U/L ALT 15 (12-78) U/L Alkaline Phosphatase 73 (45-117) U/L Total Protein 6.6 (6.4-8.2) gm/dl Albumin 2.6 L (3.4-5.0) gm/dl Globulin 4.0 (2.5-4.0) gm/dl Albumin/Globulin Ratio 0.6 L (0.9-2) Stl C. diff Tox B Gene Positive Cdiff Gene H (Neg) Stl C.difficile Tox A&B Negative Cdiff Toxin (Negative) Medications Administered Current Inpatient Medications Acetaminophen (Acetaminophen 325 Mg Tab) 650 mg PO Q4H PRN PRN Reason: Pain or Fever Stop: 02/05/21 14:19 Atorvastatin Calcium (Atorvastatin 10 Mg Tab) 10 mg PO QAM [facility] Stop: 02/08/21 08:59 Heparin Sodium (Porcine) (Heparin Sod 5,000 Unit/0.5 Ml Vial) 5,000 units SQ Q12 [facility] Stop: 02/05/21 20:59 Last Admin: 01/08/21 20:34 Dose: 5,000 units Documented by: Hydralazine HCl (Hydralazine Hcl 20 Mg/Ml Vial) 5 mg IV Q6H PRN PRN Reason: Hypertension Stop: 02/07/21 10:36 Sodium Chloride (Nss 1000ml) 1,000 mls @ 75 mls/hr IV .[id number] [facility] Stop: 02/05/21 14:59 Last Admin: 01/09/21 02:25 Dose: 75 mls/hr Documented by: Thiamine HCl 100 mg/ Syringe 10 mls @ 2 mls/min IV [facility] Stop: 02/06/21 08:59 Last Admin: 01/08/21 07:34 Dose: 2 mls/min Documented by: Folic Acid 1 mg/ Syringe 10 mls @ 5 mls/min IV [facility] Stop: 02/06/21 08:59 Last Admin: 01/08/21 07:34 Dose: 5 mls/min Documented by: Piperacillin Sod/Tazobactam (Sod 3.375 gm/ Dextrose) 115 mls @ 28.75 mls/hr IV Q8H [facility]; Protocol Stop: 01/16/21 15:59 Last Infusion: 01/09/21 04:15 Dose: Infused Documented by: Lorazepam (Ativan) 1 mg in 2 mls @ 2 mls/min IV UD PRN; Protocol PRN Reason: EtOH Withdrawl AWSS Score 6,7 Stop: 02/05/21 15:20 Lorazepam (Ativan) 2 mg in 4 mls @ 4 mls/min IV UD PRN; Protocol PRN Reason: EtOH Withdrawl AWSS Score 8,9 Stop: 02/05/21 15:20 Lorazepam (Ativan) 3 mg in 6 mls @ 4 mls/min IV ONCE PRN; Protocol PRN Reason: EtOH Withdrawl AWSS Score >=10 Stop: 02/05/21 15:20 Potassium Phosphate 21 mmol/ (Sodium Chloride) 507 mls @ 88 mls/hr IV ONE ONE Stop: 01/09/21 14:30 Lactobacillus Acidophilus (Lactobacillus Acidophilus 1 Gm Pack) 1 gm PO TIDM BRE Stop: 02/07/21 16:59 Last Admin: 01/08/21 17:50 Dose: 1 gm Documented by: Metoprolol Succinate (Metoprolol Succ 25mg Ext Rel Tab) 25 mg PO QAM [facility] Stop: 02/06/21 08:59 Last Admin: 01/08/21 07:34 Dose: 25 mg Documented by: Miscellaneous Information (Piperacill/Tazobac Consult Active) 1 ea N/A UD PRN PRN Reason: Consult Stop: 02/05/21 09:53 Morphine Sulfate (Morphine Sulfate 2 Mg/Ml [place]) 2 mg IV Q3H PRN PRN Reason: Pain Stop: 01/20/21 14:19 Last Admin: 01/07/21 10:49 Dose: 2 mg Documented by: Ondansetron HCl (Ondansetron Inj 2 Mg/Ml 2 Ml Vial) 4 mg IV Q6H PRN PRN Reason: Nausea Stop: 02/05/21 14:19 Polyethylene Glycol (Polyethylene (Miralax) 17 Gm Pack) 17 gm PO DAILY PRN PRN Reason: Constipation Stop: 02/05/21 14:19 Potassium Phosphate (Potassium Phos 3 Mmol/1 Ml Infusion) 21 mmol IV NOW STA Stop: 01/09/21 08:41
[2021-01-09] MEDS ORDERED: POTASSIUM PHOSPHATE 21 MMOL in SODIUM CHLORIDE 0.9% 500 ML IV ONE (08:45)
--- NOTE | 2021-01-09 09:17 | XRay Report ---
KUB CLINICAL HISTORY: Ileus COMPARISON STUDY: CT of the abdomen and pelvis January 06, 2021. KUB January 08, 2021. FINDINGS: Pacer leads are partially imaged. There is a hiatal hernia. Surgical clips within the pelvi s are noted. Numerous loops of mildly dilated small bowel are noted. This has slightly progressed sin ce prior examination. Although sensitivity is diminished on this supine exam, there is no evidence fo r free air. IMPRESSION: Multiple loops of moderately dilated small bowel, slightly increased since prior exam. Th e findings may reflect a partial small bowel obstruction or ileus. ACT 112: Negative or not required by law. Electronically signed by: Travis Littlejohn M.D. 01/09/2021 9:16 AM
[2021-01-09] MEDS: ATORVASTATIN 10 MG TAB PO SCH (09:32)
[2021-01-09] MEDS: THIAMINE HCL 100 MG in SYRINGE 9 ML IV SCH (09:33)
[2021-01-09] MEDS: FOLIC ACID 1 MG in SYRINGE 9.8 ML IV SCH (09:33)
[2021-01-09] MEDS: LACTOBACILLUS ACIDOPHILUS 1 GM PACK PO SCH ×3 (09:33→17:05)
[2021-01-09] MEDS: METOPROLOL SUCC 25MG EXT REL TAB PO SCH (09:34)
[2021-01-09] MEDS: HEPARIN SOD 5,000 UNIT/0.5 ML VIAL SQ SCH ×2 (09:34→20:19)
--- NOTE | 2021-01-09 10:49 | Surgery Progress Note ---
Date of Service January 09, 2021 Assessment & Plan (1) Acute diverticulitis: Plan: 80 year-old male who presented to ER with 2 day history abdominal pain. CT scan showing acute sigmoid diverticulitis with 4.2 cm abscess. Leukocytosis of 20K and now 21K. Afebrile. Plan: IR contact by ED physician and they did not recommend drainage as abscess small and possibly unable to drain via IR approach. Continue conservative measures with IV antibiotics, pain management as needed, NPO for bowel rest. Monitor cbc with am labs encourage ambulation will continue to follow Dr. Vu has seen patient and agrees with above. 01/08/2021 12:13PM 80 year-old male who presented to ER with 2 day history abdominal pain. CT scan showing acute sigmoid diverticulitis with 4.2 cm abscess. Leukocytosis of 21K and now 19K. Afebrile. pt feels better, no abdominal pain, clear diet, OOB continue IV antibiotic treatment, repeat labs in morning, will F/U 01/09/2021 10:47AM doing better, tolerated clear diet, full liquid diet, repeat labs in morning continue IV antibiotic will F/U Admission and Anticipated Discharge Date Admission Date: January 06, 2021 Subjective Patient is seen and examined at bedside Abdominal pain much improved today Discussed with surgery today States having diarrhea Leukocytosis slightly better today Offers no other complaints 01/09/2021 10:45 AM pt tolerated clear diet, no significant abdominal pain, no nausea, no vomiting, no fever, WBC down to 16,000 Review of Systems Constitutional: as per Subjective / HPI Eyes: as per Subjective / HPI Respiratory: as per Subjective / HPI Cardiovascular: Additional Comments: intermittent complete heart block Gastrointestinal: colectomy for colon cancer Genitourinary: + problem reported (prostate cancer) Neurologic: as per Subjective / HPI Hematologic / Lymphatic: as per Subjective / HPI Physical Exam Constitutional: WD/WN, vitals as above Eyes: PERRL, conjunctivae normal, anicteric sclerae Neck: trachea midline, no thyromegaly Respiratory: normal respiratory effort, lungs clear to auscultation Cardiovascular: RRR, no murmur, no edema Gastrointestinal (Abdomen): soft, NT, Nd, BS + Musculoskeletal: no cyanosis or clubbing, extremities motor strength 5/5 Neurologic: patellar DTR's 2+ bilat, sensation intact Psychiatric: A+Ox3, euthymic affect Results & Data ([facility]) Vital Signs (Past 12 Hours) Vital Signs Temp Pulse Pulse Resp BP Pulse Ox 01/09/21 08:00 64 01/09/21 07:43 36.7 C 67 18 164/80 H 95 01/09/21 04:00 37.2 C 64 18 157/71 H 93 01/09/21 00:07 62 01/08/21 23:00 37.1 C 63 18 141/92 H 93 Laboratory Results Abnormal lab results 01/08/21 01/09/21 01/09/21 Range/Units 13:23 07:19 07:19 WBC 16.44 H (4.8-10.8) K/uL RBC 3.84 L (4.7-6.1) M/uL Hgb 12.2 L (14.0-18.0) g/dL Hct 36.6 L (42-52) % RDW Std Deviation 47.8 H (36.4-46.3) fL MPV 10.8 H (7.4-10.4) fL Neut # (Auto) 14.06 H (1.4-6.5) K/uL [place] # (Auto) 0.85 H (0.11-0.59) K/uL Immature Gran # (Auto) 0.07 H (0.00-0.02) K/uL Chloride 112 H (98-107) mmol/L BUN 30 H (7-18) mg/dl BUN/Creatinine Ratio 25.4 H (10-20) Glucose 108 H (70-99) mg/dl Phosphorus 1.4 L* (2.5-4.9) mg/dl Total Bilirubin 1.2 H (0.2-1) mg/dl Albumin 2.6 L (3.4-5.0) gm/dl Albumin/Globulin Ratio 0.6 L (0.9-2) Stl C. diff Tox B Gene Positive Cdiff Gene H (Neg)
[2021-01-10 07:11] LABS: Hemoglobin 11.1 g/dL (14.0-18.0); Mean Corpuscular Hemoglobin 31.7 pg (25-34); Mean Corpuscular Hgb Conc 33.6 g/dL (32-36); Mean Corpuscular Volume 94.3 fL (80-100); Mean Platelet Volume 10.4 fL (7.4-10.4); Platelet Count 258 K/uL (130-400); RDW Coefficient of Variation 13.8 % (11.5-14.5); White Blood Count 12.35 K/uL (4.8-10.8)
[2021-01-10 07:48] LABS: BUN Creatinine Ratio 23.7 (10-20); Calcium 8.1 mg/dl (8.5-10.1); Creatinine Clr Calc Pharmacy 68.8 ml/min; Est GFR (African American) 95.1 ml/min; Est GFR (Non-African American) 82.1 ml/min; Magnesium 2.1 mg/dl (1.8-2.4); Potassium 3.6 mmol/L (3.5-5.1)
[2021-01-10 07:49] LABS: Phosphorus 1.7 mg/dl (2.5-4.9)
[2021-01-10] MEDS: ATORVASTATIN 10 MG TAB PO SCH (09:10)
[2021-01-10] MEDS: PIPERACILLIN/TAZOBACTAM 3.375 GM in DEXTROSE 5% 100 ML IV SCH (09:11)
[2021-01-10] MEDS: METOPROLOL SUCC 25MG EXT REL TAB PO SCH (09:11)
[2021-01-10] MEDS: FOLIC ACID 1 MG in SYRINGE 9.8 ML IV SCH (09:12)
[2021-01-10] MEDS: HEPARIN SOD 5,000 UNIT/0.5 ML VIAL SQ SCH (09:13)
[2021-01-10] MEDS: THIAMINE HCL 100 MG in SYRINGE 9 ML IV SCH (09:13)
[2021-01-10] MEDS: LACTOBACILLUS ACIDOPHILUS 1 GM PACK PO SCH ×2 (09:14→12:11)
[2021-01-10] MEDS ORDERED: POTASSIUM PHOS 3 MMOL/1 ML INFUSION IV STA (09:31)
--- NOTE | 2021-01-10 09:34 | Hospitalist Progress Note ---
Date of Service January 10, 2021 Assessment & Plan (1) Acute diverticulitis: Plan: Sepsis Acute Diverticulitis with Abscess Possible Enterocolitis --CT ABD:There is moderate colonic diverticulosis with evidence of acute diverticulitis involving the sigmoid colon. There is a 2.0 x 4.2 x 1.8 cm developing abscess in the deep left pelvis adjacent to the sigmoid colon. There is postoperative change from right-sided colonic resection with ileocolic anastomosis. No high-grade bowel obstruction is identified. There is focal dilatation of the right colon at the anastomotic site which may be related to denervation. Liquid stool is seen throughout the colon. Additionally, there are mildly distended and fluid-filled loops of small bowel with no clear transition point identified. Mild inflammatory change is suggested involving several loops of small bowel in the right lower quadrant with trace associated interloop fluid. These findings could represent a nonspecific enterocolitis. Ileus or low- grade obstruction could also have this appearance. Clinical correlation will be required. Large hiatal hernia. -Surgery recommended transfer to tertiary care facility for possible percutaneous drainage by IR -ER physician discussed with interventional radiologist who recommended conservative management unless patient deteriorates given very small abscess and possible inability to drain it. -Appreciate surgery input -Ordered stool studies as pt has diarrhea now C. difficile gene positive, C. difficile toxin negative Blood cultures No growth Lactate levels Normalized Continued Zosyn - > will now switch to PO Augmentin Low fiber diet Surgery follow-up in 2 weeks Colonoscopy in 6 to 8 weeks Possible Ileus KUB:There is gaseous distention of the small bowel loops. This could represent ileus versus obstruction and clinical correlation will be required. Pt having BMs Repeat KUB 01/10 - IMPRESSION: Moderate interval decrease in small bowel dilatation. Seen by surgery - ok to DC on PO Abx Diarrhea Likely secondary to antibiotics Stool for C. difficile negative Ordered stool cultx, WBC - results pending diarrhea improved Abnormal urinalysis UTI ruled out Urine culture Negative Complete heart block S/P pacemaker Tobacco use disorder Refuses nicotine patch Counseled to quit next Alcohol use disorder Continue thiamine, folic acid Monitor for withdrawal H/O prostate cancer S/P radical prostatectomy H/O Colon cancer S/P resection CKD III Baseline creatinine 1.3-1.4 Creatinine 0.9 today Monitor renal function Avoid nephrotoxic agents as able Hypertension Continue metoprolol Resume Lisinopril as able Hydralazine PRN Dyslipidemia Resume statin DVT Px: Heparin SQ Code Status DNI/DNR as per admitting provider discussion with patient Admission and Anticipated Discharge Date Admission Date: January 06, 2021 Subjective Patient is seen in follow-up of diverticulitis, abscess Abdominal pain resolved Seen by surgery today, diet advanced to low fiber - ok to switch to PO Abx No fevers chills, chest pain shortness of breath, nausea vomiting States having diarrhea (now improved) -C. difficile toxin negative Leukocytosis much improved today Review of Systems Review of Systems: All systems reviewed & are unremarkable except as noted in Subjective Physical Exam Physical Exam: General Appearance:Moderately built and nourished, no apparent distress Head: normocephalic, Atraumatic Eyes: normal inspection, EOMI Neck: supple, Trachea midline Respiratory/Chest: Decreased breath sounds, CTA, No accessory muscle use Cardiovascular: S1, S2, No murmur, +Pacemaker Abdomen/GI:Soft, non tender, No guarding or rigidity, Bowel sounds present Extremities/Musculoskeletal:normal inspection, no edema Neurologic/Psych:AAOX3, grossly no focal neurological deficits Skin: normal color, warm Results & Data Results & Data ([facility]) Vital Signs (Past 12 Hours) Vital Signs Temp Pulse Pulse Resp BP BP Pulse Ox 01/10/21 07:44 36.5 C 72 18 166/85 H 92 01/10/21 04:27 36.8 C 67 18 158/81 H 94 01/10/21 00:54 65 01/09/21 23:00 36.5 C 71 18 159/84 H 92 Laboratory Results 01/10/21 01/10/21 Range/Units 06:55 06:55 WBC 12.35 H (4.8-10.8) K/uL RBC 3.50 L (4.7-6.1) M/uL Hgb 11.1 L (14.0-18.0) g/dL Hct 33.0 L (42-52) % MCV 94.3 (80-100) fL MCH 31.7 (25-34) pg MCHC 33.6 (32-36) g/dL RDW Std Deviation 48.0 H (36.4-46.3) fL RDW Coeff of Trupti 13.8 (11.5-14.5) % Plt Count 258 (130-400) K/uL MPV 10.4 (7.4-10.4) fL Sodium 141 (136-145) mmol/L Potassium 3.6 (3.5-5.1) mmol/L Chloride 115 H (98-107) mmol/L Carbon Dioxide 20 L (21-32) mmol/L Anion Gap 6.0 (3-11) BUN 21 H (7-18) mg/dl Creatinine 0.87 (0.6-1.4) mg/dl Est Cr Clr Drug Dosing 68.8 ml/min Est GFR ( Amer) 95.1 ml/min Est GFR (Non-Af Amer) 82.1 ml/min BUN/Creatinine Ratio 23.7 H (10-20) Glucose 92 (70-99) mg/dl Calcium 8.1 L (8.5-10.1) mg/dl Phosphorus 1.7 L (2.5-4.9) mg/dl Magnesium 2.1 (1.8-2.4) mg/dl Medications Administered Current Inpatient Medications Acetaminophen (Acetaminophen 325 Mg Tab) 650 mg PO Q4H PRN PRN Reason: Pain or Fever Stop: 02/05/21 14:19 Atorvastatin Calcium ([facility]atin 10 Mg Tab) [facility] Stop: 02/08/21 08:59 Last Admin: 01/10/21 09:10 Dose: 10 mg Documented by: Heparin Sodium (Porcine) (Heparin Sod 5,000 Unit/0.5 Ml Vial) 5,000 units SQ Q12 BRE Stop: 02/05/21 20:59 Last Admin: 01/10/21 09:13 Dose: 5,000 units Documented by: Hydralazine HCl (Hydralazine Hcl 20 Mg/Ml Vial) 5 mg IV Q6H PRN PRN Reason: Hypertension Stop: 02/07/21 10:36 Sodium Chloride (Nss 1000ml) 1,000 mls @ 75 mls/hr IV .[id number] [facility] Stop: 02/05/21 14:59 Last Admin: 01/09/21 20:23 Dose: 75 mls/hr Documented by: Thiamine HCl 100 mg/ Syringe 10 mls @ 2 mls[facility] Stop: 02/06/21 08:59 Last Admin: 01/10/21 09:13 Dose: 2 mls/min Documented by: Folic Acid 1 mg/ Syringe 10 mls @ 5 mls/min IV QAM [facility] Stop: 02/06/21 08:59 Last Admin: 01/10/21 09:12 Dose: 5 mls/min Documented by: Piperacillin Sod/Tazobactam (Sod 3.375 gm/ Dextrose) 115 mls @ 28.75 mls/hr IV Q8H [facility]; Protocol Stop: 01/16/21 15:59 Last Admin: 01/10/21 09:11 Dose: 28.8 mls/hr Documented by: Lorazepam (Ativan) 1 mg in 2 mls @ 2 mls/min IV UD PRN; Protocol PRN Reason: EtOH Withdrawl AWSS Score 6,7 Stop: 02/05/21 15:20 Lorazepam (Ativan) 2 mg in 4 mls @ 4 mls/min IV UD PRN; Protocol PRN Reason: EtOH Withdrawl AWSS Score 8,9 Stop: 02/05/21 15:20 Lorazepam (Ativan) 3 mg in 6 mls @ 4 mls/min IV ONCE PRN; Protocol PRN Reason: EtOH Withdrawl AWSS Score >=10 Stop: 02/05/21 15:20 Lactobacillus Acidophilus (Lactobacillus Acidophilus 1 Gm Pack) 1 gm PO TIDM [facility] Stop: 02/07/21 16:59 Last Admin: 01/10/21 09:14 Dose: 1 gm Documented by: Metoprolol Succinate (Metoprolol Succ 25mg Ext Rel Tab) 25 mg PO QAM [facility] Stop: 02/06/21 08:59 Last Admin: 01/10/21 09:11 Dose: 25 mg Documented by: Miscellaneous Information (Piperacill/Tazobac Consult Active) 1 ea N/A UD PRN PRN Reason: Consult Stop: 02/05/21 09:53 Morphine Sulfate (Morphine Sulfate 2 Mg/Ml Carp) 2 mg IV Q3H PRN PRN Reason: Pain Stop: 01/20/21 14:19 Last Admin: 01/07/21 10:49 Dose: 2 mg Documented by: Ondansetron HCl (Ondansetron Inj 2 Mg/Ml 2 Ml Vial) 4 mg IV Q6H PRN PRN Reason: Nausea Stop: 02/05/21 14:19 Polyethylene Glycol (Polyethylene (Miralax) 17 Gm Pack) 17 gm PO DAILY PRN PRN Reason: Constipation Stop: 02/05/21 14:19 Potassium Chloride (Potassium Chloride Crtab 20 Meq Tabcr) 20 meq PO NOW STA Stop: 01/10/21 09:33 Potassium Phosphate (Potassium Phos 3 Mmol/1 Ml Infusion) 15 mmol IV NOW STA Stop: 01/10/21 09:32 Potassium Phosphate (Pot Phosphate Monobasic W/ Sod Tab) 1 tab PO QID BRE Stop: 02/09/21 12:59
[2021-01-10] MEDS ORDERED: POTASSIUM CHLORIDE CRTAB 20 MEQ TABCR PO STA (09:41)
[2021-01-10] MEDS: SODIUM CHLORIDE 0.9% 1000ML 1,000 ML IV SCH (09:45)
--- NOTE | 2021-01-10 09:46 | XRay Report ---
KUB CLINICAL HISTORY: follow up COMPARISON STUDY: KUB January 09, 2021. FINDINGS: Pelvic surgical clips are noted. Pacer leads are partially imaged. There is a hiatal hernia . Although sensitivity is diminished on this exam is no evidence for free air. Small bowel dilatation has moderately improved since prior exam. Mild residual small bowel dilatation is noted. IMPRESSION: Moderate interval decrease in small bowel dilatation. ACT 112: Negative or not required by law. Electronically signed by: Travis Littlejohn M.D. 01/10/2021 9:45 AM
[2021-01-10] MEDS ORDERED: POTASSIUM PHOSPHATE 15 MMOL in SODIUM CHLORIDE 0.9% 250 ML IV ONE (10:15)
--- NOTE | 2021-01-10 10:19 | Surgery Progress Note ---
Date of Service January 10, 2021 Assessment & Plan (1) Acute diverticulitis: (2) Diarrhea: Plan: 80 year-old male who presented to ER with 2 day history abdominal pain. CT scan showing acute sigmoid diverticulitis with 4.2 cm abscess. afebrile , vitals stable Leukocytosis continues to improve abdominal pain resolved no n/v + diarrhea, c. diff gene positive but toxin negative, stool culture pending. Likely secondary to antibiotics Plan: Okay to advance to low fiber diet consider transitioning to oral antibiotics cipro and flagyl . Will need 2 weeks total course of antibiotics (IV and oral) Low fiber diet for 2-4 weeks Needs colonoscopy in 6-8 weeks Follow-up surgery office in 2 weeks our services signing off, call with questions or concerns. Admission and Anticipated Discharge Date Admission Date: January 06, 2021 Subjective feeling better today no abdominal pain, less bloating today passing gas + diarrhea no nausea or vomiting tolerated full liquids Physical Exam Constitutional: WD/WN, vitals as above no acute distress and not ill appearing Respiratory: normal respiratory effort; no respiratory distress, no labored breathing and no retractions Gastrointestinal (Abdomen): Inspection/Auscultation: abdomen normal to inspection and + abdominal surgical scar (midline laparotomy scar); abdomen not distended Percussion/Palpation: abdomen soft; abdomen nontender, no guarding and abdomen not rigid Skin: no rashes, warm and dry Psychiatric: A+Ox3, euthymic affect Results & Data ([facility]) Vital Signs (Past 12 Hours) Vital Signs Temp Pulse Pulse Resp BP BP Pulse Ox 01/10/21 07:44 36.5 C 72 18 166/85 H 92 01/10/21 04:27 36.8 C 67 18 158/81 H 94 01/10/21 00:54 65 01/09/21 23:00 36.5 C 71 18 159/84 H 92 Laboratory Results 01/10/21 01/10/21 Range/Units 06:55 06:55 WBC 12.35 H (4.8-10.8) K/uL RBC 3.50 L (4.7-6.1) M/uL Hgb 11.1 L (14.0-18.0) g/dL Hct 33.0 L (42-52) % MCV 94.3 (80-100) fL MCH 31.7 (25-34) pg MCHC 33.6 (32-36) g/dL RDW Std Deviation 48.0 H (36.4-46.3) fL RDW Coeff of Trupti 13.8 (11.5-14.5) % Plt Count 258 (130-400) K/uL MPV 10.4 (7.4-10.4) fL Sodium 141 (136-145) mmol/L Potassium 3.6 (3.5-5.1) mmol/L Chloride 115 H (98-107) mmol/L Carbon Dioxide 20 L (21-32) mmol/L Anion Gap 6.0 (3-11) BUN 21 H (7-18) mg/dl Creatinine 0.87 (0.6-1.4) mg/dl Est Cr Clr Drug Dosing 68.8 ml/min Est GFR ( Amer) 95.1 ml/min Est GFR (Non-Af Amer) 82.1 ml/min BUN/Creatinine Ratio 23.7 H (10-20) Glucose 92 (70-99) mg/dl Calcium 8.1 L (8.5-10.1) mg/dl Phosphorus 1.7 L (2.5-4.9) mg/dl Magnesium 2.1 (1.8-2.4) mg/dl Microbiology 01/09/21 17:12 WBC Smear - Final Stool Diagnostic Findings KUB CLINICAL HISTORY: follow up COMPARISON STUDY: KUB January 09, 2021. FINDINGS: Pelvic surgical clips are noted. Pacer leads are partially imaged. There is a hiatal hernia. Although sensitivity is diminished on this exam is no evidence for free air. Small bowel dilatation has moderately improved since prior exam. Mild residual small bowel dilatation is noted. IMPRESSION: Moderate interval decrease in small bowel dilatation.
[2021-01-10] MEDS ORDERED: POT PHOSPHATE MONOBASIC W/ SOD TAB PO SCH (13:00)
--- NOTE | 2021-01-10 15:02 | Discharge Summary ---
Date of Service January 10, 2021 Admission HPI Per Admitting Provider Patient is a 80-year-old male with history of complete heart block S/P pacemaker, prostate cancer S/P radical prostatectomy, colon cancer S/P resection, hypertension, tobacco use disorder, hyperlipidemia, CKD stage III and other medical problems presents with history of generalized abdominal pain since Thursday. Patient states that abdominal pain is bandlike, 9/10 intensity, increases with any movement and food intake. Patient has not been able to eat well since Thursday. His last bowel movement is on Thursday as well. He denies any nausea, vomiting, fever, diarrhea, blood in stools but admits to have chills.De nies any history of chest pain, SOB, palpitations, dizziness, cough, fall, trauma, headache, weight loss, dysuria, hematuria. Patient was evaluated by surgery while in ED and recommended transfer to tertiary care facility for percutaneous drainage by IR of abdominal abscess but ER physician discussed with interventional radiologist who suggested that the abscess is too small to be drained and recommended conservative management unless patient deteriorates. Admission Exam Per Admitting Provider General Appearance:Moderately built and nourished, no apparent distress Head: normocephalic, Atraumatic Eyes: normal inspection, EOMI Neck: supple, Trachea midline Respiratory/Chest: Decreased breath sounds, CTA, No accessory muscle use Cardiovascular: S1, S2, No murmur, +Pacemaker Abdomen/GI:Soft, LLQ tender, No guarding or rigidity, Bowel sounds present Extremities/Musculoskeletal:normal inspection, no edema Neurologic/Psych:AAOX3, grossly no focal neurological deficits Skin: normal color, warm Principal Diagnosis Acute diverticulitis with abscess Discharge Exam General Appearance:Moderately built and nourished, no apparent distress Head: normocephalic, Atraumatic Eyes: normal inspection, EOMI Neck: supple, Trachea midline Respiratory/Chest: Decreased breath sounds, CTA, No accessory muscle use Cardiovascular: S1, S2, No murmur, +Pacemaker Abdomen/GI:Soft, non tender, No guarding or rigidity, Bowel sounds present Extremities/Musculoskeletal:normal inspection, no edema Neurologic/Psych:AAOX3, grossly no focal neurological deficits Skin: normal color, warm Discharge Data Allergies Allergy/AdvReac Type Severity Reaction Status Date / Time No Known Allergies Allergy Unknown Verified 01/06/21 09:28 Consultations 01/06/21 10:46 Consult General Surgery Stat 01/06/21 12:46 ED Decision to Admit Stat Ordered Studies 01/06/21 08:45 CT abd pelvis IV con only Stat IMPRESSION: 1. There is moderate colonic diverticulosis with evidence of acute diverticulitis involving the sigmoid colon. 2. No intraperitoneal free air is identified. 3. There is a 2.0 x 4.2 x 1.8 cm developing abscess in the deep left pelvis adjacent to the sigmoid colon. 4. There is postoperative change from right-sided colonic resection with ileocolic anastomosis. No high-grade bowel obstruction is identified. 5. There is focal dilatation of the right colon at the anastomotic site which may be related to denervation. Liquid stool is seen throughout the colon. Additionally, there are mildly distended and fluid-filled loops of small bowel with no clear transition point identified. Mild inflammatory change is suggested involving several loops of small bowel in the right lower quadrant with trace associated interloop fluid. These findings could represent a nonspecific enterocolitis. Ileus or low-grade obstruction could also have this appearance. Clinical correlation will be required. 6. Cardiomegaly and emphysema. 7. Status post prostatectomy. 8. Large hiatal hernia. 9. Additional findings as above. Hospital Course (1) Acute diverticulitis: Sepsis Acute Diverticulitis with Abscess Possible Enterocolitis --CT ABD:There is moderate colonic diverticulosis with evidence of acute diverticulitis involving the sigmoid colon. There is a 2.0 x 4.2 x 1.8 cm developing abscess in the deep left pelvis adjacent to the sigmoid colon. There is postoperative change from right-sided colonic resection with ileocolic anastomosis. No high-grade bowel obstruction is identified. There is focal dilatation of the right colon at the anastomotic site which may be related to denervation. Liquid stool is seen throughout the colon. Additionally, there are mildly distended and fluid-filled loops of small bowel with no clear transition point identified. Mild inflammatory change is suggested involving several loops of small bowel in the right lower quadrant with trace associated interloop fluid. These findings could represent a nonspecific enterocolitis. Ileus or low- grade obstruction could also have this appearance. Clinical correlation will be required. Large hiatal hernia. -Surgery recommended transfer to tertiary care facility for possible percutaneous drainage by IR -ER physician discussed with interventional radiologist who recommended conservative management unless patient deteriorates given very small abscess and possible inability to drain it. -Appreciate surgery input -Ordered stool studies as pt has diarrhea now C. difficile gene positive, C. difficile toxin negative Blood cultures No growth Lactate levels Normalized Continued Zosyn - > will now switch to PO Augmentin Low fiber diet Surgery follow-up in 2 weeks Colonoscopy in 6 to 8 weeks Possible Ileus KUB:There is gaseous distention of the small bowel loops. This could represent ileus versus obstruction and clinical correlation will be required. Pt having BMs Repeat KUB 01/10 - IMPRESSION: Moderate interval decrease in small bowel dilatation. Seen by surgery - ok to DC on PO Abx Diarrhea Likely secondary to antibiotics Stool for C. difficile negative Ordered stool cultx, WBC - results pending diarrhea improved Abnormal urinalysis UTI ruled out Urine culture Negative Complete heart block S/P pacemaker Tobacco use disorder Refuses nicotine patch Counseled to quit next Alcohol use disorder Continue thiamine, folic acid Monitor for withdrawal H/O prostate cancer S/P radical prostatectomy H/O Colon cancer S/P resection CKD III Baseline creatinine 1.3-1.4 Creatinine 0.9 today Monitor renal function Avoid nephrotoxic agents as able Hypertension Continue metoprolol Resume Lisinopril as able Hydralazine PRN Dyslipidemia Resume statin DVT Px: Heparin SQ Code Status DNI/DNR as per admitting provider discussion with patient Total Time Total Time Spent Total Time Spent (In Minutes): 40 Discharge Plan Discharge Items Patient Disposition: Home - Self-Care Reason For Visit: ABDOMINAL PAIN Discharge Diagnosis: Acute diverticulitis with abscess Condition on Discharge: Fair Activity: Per Instructions section Non-emergency contact: Primary Care Provider and Surgeon Call non-emergency contact if: you have any medication questions and your symptoms worsen Follow-up/Referrals: Benita Lopez MD [Primary Care Provider] - (Date & Time 01/14/2021 5:00 PM Provider Marty Hoffman PA-C Department General Internal Medicine [facility] ) Camron Vu MD [Physician] - (Follow-up in 2 weeks) Diet: Low Fiber Addtl Attending Provider Instructions: Follow-up with your primary care doctor, the appointment was scheduled for you for January 14. You will also need to follow-up with surgery, in 2 weeks. Their phone number is listed below. In the meantime continue antibiotics, Augmentin as prescribed. It is also recommended that for now, you stay on a low fiber diet. Addtl Factory Expert Provider Instructions: Surgical discharge instructions: - Recommend low fiber diet for 2-4 weeks while in this acute inflammatory phase - Will need prolonged course of antibiotics given abscess formation - Recommend colonoscopy in 6-8 weeks to evaluate colon - Follow-up in surgical office in 2 weeks. Please call office at [phone] to make an appointment. Pending Studies at Discharge: Yes Studies:: Stool culture Stand-Alone Forms: My [facility], Smoking Cessation Medications and DC Order Prescriptions: New amoxicillin-pot clavulanate [Augmentin] 875-125 mg Tablet 1 tab PO TID 11 Days Qty: 33 RF: 0 Continued multivitamin [Daily Multi-Vitamin] Tablet 1 tab PO QAM RF: 0 atorvastatin [Lipitor] 10 mg Tablet 10 mg PO QAM RF: 0 lisinopril [Zestril] 5 mg Tablet 5 mg PO QAM RF: 0 metoprolol succinate [Toprol XL] 25 mg tablet extended release 24 hr 25 mg PO QAM RF: 0 tadalafil [Cialis] 5 mg tablet 5 mg PO DAILY PRN (Reason: Erectile Dysfunction) RF: 0 Discharge Orders: Discharge Order (Routine); Ordered 01/10/21 Ordered By: Nnamdi Boogie/Other Patient Handouts: Low-Fiber Diet, Diverticulosis Diverticulitis Admission Data Admit Date/Time: 01/06/21 12:50 Attending Provider: Nnamdi Petersen Admit Provider: Addy Mueller Primary Care Provider: Benita Lopez Other Providers: Camron Vu ; Addy Mueller
[2021-01-10] MEDS ORDERED: AMOXICILLIN/CLAVULANATE 875 MG TAB PO SCH ×2 (16:00→21:00)
== END 2021-01-10 17:27 | disposition home or self-care (01) | DRG 872 ==
LOC: ED 08:26 → SUATTDRO 12:50 → EDINP 12:50 → 2W 19:12